=== PATIENT | male | born 1955 | race African-American/Black ===

== ENCOUNTER 2020-11-02 10:18 | Inpatient (IN) ==
[2020-11-02] MEDS ORDERED: Ondansetron 4 MG/2 ML VIAL IVP ONE (10:50)
[2020-11-02] MEDS ORDERED: 0.9 % Sodium Chloride 1,000 ML IVC ONE ×3 (10:50→15:48)
[2020-11-02] MEDS ORDERED: Isovue-370 500 ML BOTTLE IVP ONE ×2 (10:56→10:59)
[2020-11-02 11:48] LABS: Basophils % 0.8 %; Red Cell Distribution Width 16.1 % (11.5-14.5)
[2020-11-02 11:50] LABS: Eosinophils # 0.1 K/mcL (0.0-0.6); Hematocrit 34.6 % (37.5-50.1); Immature Granulocytes % 9.6 % (0-4); Immature Platelets 3.7 % (1.1-6.1); Lymphocytes # 0.2 K/mcL (0.6-4.6); Lymphocytes % 12.8 %; Mean Corpuscular HGB Conc 31.8 g/dL (31.6-35.5); Mean Corpuscular Hemoglobin 28.6 pg (28.0-33.3); Mean Corpuscular Volume 89.9 fL (83.0-100.0); Monocytes # 0.1 K/mcL (0.0-1.3); Monocytes % 10.4 %; Neutrophils # 0.8 K/mcL (1.6-8.9); Red Blood Count 3.85 M/mcL (4.19-5.50); Segmented Neutrophils % 62.4 %; White Blood Count 1.3 K/mcL (4.3-11.1)
[2020-11-02 11:52] LABS: Platelet Count 66 K/mcL (140-400)
[2020-11-02 11:56] LABS: INR 1.1; Prothrombin Time 12.3 Seconds (9.4-12.1)
[2020-11-02 12:23] LABS: Anisocytosis 1+ (Not Present); Large Platelets Present (Not Present); Platelet Estimate Decreased (Normal)
[2020-11-02 12:37] LABS: Troponin I < 0.03 ng/mL (< 0.04)
[2020-11-02 12:49] LABS: BUN/Creatinine Ratio 20 (6-26); Blood Urea Nitrogen 29 mg/dL (8-23); Calcium 8.9 mg/dL (8.6-10.3); Carbon Dioxide 22 mEq/L (23-29); Chloride 89 mEq/L (98-107); Glucose 887 mg/dL (70-105); Magnesium 2.3 mg/dL (1.6-2.6); Osmolality,Calculated 304 (280-300); Potassium 4.8 mEq/L (3.5-5.1); Sodium 122 mEq/L (136-145); eGFR For African Americans 58 (> 60); eGFR For Non-African Americans 48 (> 60)
[2020-11-02 14:36] LABS: Bilirubin,Urine Negative (Negative); Blood,Urine Negative (Negative); Clarity,Urine Clear (Clear); Color,Urine Colorless (Yellow); Glucose,Urine (UA) >=1000 mg/dL (Normal); Ketones,Urine Negative (Negative); Leukocyte Esterase,Urine Negative (Negative); Nitrite,Urine Negative (Negative); PH,Urine 6.5 pH Units (5.0-8.0); Protein,Urine Negative (Neg-Trace); RBC,Urine 0-3 per hpf (0-3); Specific Gravity,Urine > 1.030 (1.010-1.025); Urobilinogen,Urine Normal (Normal); WBC,Urine 0-3 per hpf (0-3)
[2020-11-02] MEDS ORDERED: *HR* Dextrose 50 % in Water (Vial) 50 ML VIAL IVP PRN (14:59)
[2020-11-02] MEDS ORDERED: D5% in 0.45% NACL w KCl 20 MEQ/1,000 ML MLS IVC PRN (14:59)
[2020-11-02] MEDS ORDERED: Insulin Regular, Human 100 UNIT/ML IV PRN ×2 (14:59)
[2020-11-02] MEDS ORDERED: D5% in 0.45% NACL 1,000 ML IVC PRN (14:59)
[2020-11-02] MEDS ORDERED: 0.45 % Sodium Chloride w/KCl 20 MEQ/1,000 ML MLS IVC SCH ×2 (15:00)
[2020-11-02] MEDS ORDERED: Insulin Human Regular 100 UNIT in 0.9 % Sodium Chloride 100 ML IVC SCH (15:00)
[2020-11-02] MEDS ORDERED: Naloxone 0.4 MG/ML INJ IVP PRN (15:10)
[2020-11-02] MEDS ORDERED: Ondansetron 4 MG/2 ML VIAL IVP PRN (15:10)
[2020-11-02] MEDS ORDERED: *HR* Metoprolol 5 MG/5 ML VIAL IVP ONE (15:48)
[2020-11-02 17:07] LABS: VBG HCO3 26 mEq/L (21-27); VBG PCO2 47 mmHg (41-51); VBG PH 7.36 pH Units (7.32-7.42); VBG PO2 55 mmHg (25-50)
[2020-11-02 17:25] LABS: Alanine Aminotransferase 10 Units/L (7-52); Albumin 4.2 g/dL (3.5-5.7); Albumin/Globulin Ratio 1.4 (1.1-2.2); Alkaline Phosphatase 108 Units/L (34-104); Aspartate Amino Transferase 6 Units/L (13-39); BUN/Creatinine Ratio 18 (6-26); Bilirubin,Direct 0.1 mg/dL (0.0-0.2); Bilirubin,Indirect 0.7 mg/dL (0.0-1.0); Bilirubin,Total 0.8 mg/dL (0.3-1.0); Blood Urea Nitrogen 25 mg/dL (8-23); Calcium 9.3 mg/dL (8.6-10.3); Carbon Dioxide 26 mEq/L (23-29); Chloride 94 mEq/L (98-107); Globulin 2.9 g/dL (2.4-3.5); Glucose 529 mg/dL (70-105); Lipase 35 Units/L (11-82); Osmolality,Calculated 298 (280-300); Phosphorous 3.6 mg/dL (2.7-4.5); Potassium 4.6 mEq/L (3.5-5.1); Sodium 130 mEq/L (136-145); Total Protein 7.1 g/dL (6.4-8.9); eGFR For African Americans > 60 (> 60); eGFR For Non-African Americans 52 (> 60)
[2020-11-02 21:36] LABS: BUN/Creatinine Ratio 19 (6-26); Blood Urea Nitrogen 21 mg/dL (8-23); Calcium 8.4 mg/dL (8.6-10.3); Carbon Dioxide 27 mEq/L (23-29); Chloride 106 mEq/L (98-107); Glucose 100 mg/dL (70-105); Osmolality,Calculated 291 (280-300); Potassium 3.6 mEq/L (3.5-5.1); Sodium 139 mEq/L (136-145); eGFR For African Americans > 60 (> 60); eGFR For Non-African Americans > 60 (> 60)
[2020-11-02] MEDS ORDERED: *HR* Heparin 5,000 UNIT/ML VIAL SQ SCH (22:00)
[2020-11-02] MEDS ORDERED: Insulin DETEMIR 100 UNIT/ML X5UNITS SUBQ ONE (22:24)
[2020-11-03] MEDS ORDERED: Perflutren Lipid Microsphere 1.3 ML in 0.9 % Sodium Chloride 8.7 ML IVP PRN ×2 (00:08→13:26)
[2020-11-03] MEDS ORDERED: *HR* Labetalol 20 MG/4 ML SYRINGE IVP ONE (00:11)
[2020-11-03] MEDS ORDERED: *HR* Heparin 5,000 UNIT/ML VIAL IVP ONE (00:17)
[2020-11-03] MEDS ORDERED: *HR* Heparin 5,000 UNIT/ML VIAL IVP PRN ×2 (00:17)
[2020-11-03] MEDS ORDERED: *HR* Metoprolol 5 MG/5 ML VIAL IVP ONE ×2 (00:31→09:27)
[2020-11-03 01:10] LABS: VBG Ionized Calcium 1.14 mmol/L (1.15-1.35)
[2020-11-03 01:30] LABS: BUN/Creatinine Ratio 16 (6-26); Blood Urea Nitrogen 20 mg/dL (8-23); Calcium 8.1 mg/dL (8.6-10.3); Carbon Dioxide 27 mEq/L (23-29); Chloride 105 mEq/L (98-107); Glucose 140 mg/dL (70-105); Magnesium 2.2 mg/dL (1.6-2.6); Osmolality,Calculated 291 (280-300); Potassium 3.5 mEq/L (3.5-5.1); Sodium 138 mEq/L (136-145); eGFR For African Americans > 60 (> 60); eGFR For Non-African Americans 58 (> 60)
[2020-11-03] MEDS: Heparin 25,000UNIT/250ML 1/2NS 25,000 UNIT/250 ML IV.SOLN IVC SCH ×2 (01:36→18:53)
[2020-11-03] MEDS ORDERED: Potassium Chloride Elixir 20 MEQ/15 ML UDC PO ONE (02:07)
[2020-11-03] MEDS ORDERED: Acetaminophen IV 1,000 MG/100 ML BAG IVPB ONE (03:05)
[2020-11-03 06:37] LABS: INR 1.1; Prothrombin Time 12.3 Seconds (9.4-12.1)
[2020-11-03 06:52] LABS: Alanine Aminotransferase 8 Units/L (7-52); Albumin 3.3 g/dL (3.5-5.7); Albumin/Globulin Ratio 1.6 (1.1-2.2); Alkaline Phosphatase 75 Units/L (34-104); Aspartate Amino Transferase 8 Units/L (13-39); BUN/Creatinine Ratio 16 (6-26); Bilirubin,Total 0.5 mg/dL (0.3-1.0); Blood Urea Nitrogen 20 mg/dL (8-23); Calcium 8.1 mg/dL (8.6-10.3); Carbon Dioxide 24 mEq/L (23-29); Chloride 105 mEq/L (98-107); Globulin 2.1 g/dL (2.4-3.5); Glucose 269 mg/dL (70-105); Osmolality,Calculated 290 (280-300); Potassium 4.1 mEq/L (3.5-5.1); Sodium 134 mEq/L (136-145); Total Protein 5.4 g/dL (6.4-8.9); eGFR For African Americans > 60 (> 60); eGFR For Non-African Americans 57 (> 60)
[2020-11-03] MEDS: Insulin LISPRO 300 UNITS/3 ML VIAL SUBQ SCH ×4 (08:13→21:20)
[2020-11-03 09:00] LABS: Hematocrit 33.4 % (37.5-50.1); Hemoglobin 10.9 g/dL (12.9-16.9); Mean Corpuscular HGB Conc 32.6 g/dL (31.6-35.5); Mean Corpuscular Hemoglobin 28.8 pg (28.0-33.3); Mean Corpuscular Volume 88.1 fL (83.0-100.0); Red Blood Count 3.79 M/mcL (4.19-5.50)
[2020-11-03 09:02] LABS: Immature Platelets 4.7 % (1.1-6.1); Mean Platelet Volume 11.7 fL (9.4-12.4); Monocytes # 0.1 K/mcL (0.0-1.3); Red Cell Distribution Width 16.4 % (11.5-14.5)
[2020-11-03 09:17] LABS: Estimated Average Glucose 249 mg/dl; Hemoglobin A1C 10.3 %
[2020-11-03 09:50] LABS: Platelet Count 62 K/mcL (140-400); White Blood Count 1.1 K/mcL (4.3-11.1)
[2020-11-03 12:08] LABS: Lymphocytes # 0.3 K/mcL (0.6-4.6); Neutrophils # 0.7 K/mcL (1.6-8.9); Platelet Estimate Slight Decrease (Normal)
[2020-11-03 12:09] LABS: Anisocytosis 1+ (Not Present)
[2020-11-03] MEDS ORDERED: DilTIAZem 50 MG in 0.9 % Sodium Chloride 40 ML IVC SCH (13:45)
[2020-11-03] MEDS ORDERED: Insulin DETEMIR 100 UNIT/ML X5UNITS SUBQ SCH (21:00)
[2020-11-03] MEDS: allopurinoL 100 MG TABLET PO SCH (21:18)
[2020-11-03] MEDS: *HR* HYDROcodone/Acet 10/325 mg TABLET PO PRN (21:19)
[2020-11-03] MEDS: Furosemide 40 MG TABLET PO SCH (21:19)
[2020-11-04] MEDS: *HR* HYDROcodone/Acet 10/325 mg TABLET PO PRN ×3 (05:28→21:28)
[2020-11-04 05:45] LABS: Mean Corpuscular Hemoglobin 29.3 pg (28.0-33.3)
[2020-11-04 05:47] LABS: Hematocrit 32.1 % (37.5-50.1); Hemoglobin 10.6 g/dL (12.9-16.9); Immature Platelets 6.1 % (1.1-6.1); Mean Corpuscular Volume 88.7 fL (83.0-100.0); Nucleated Red Blood Cells 2.1 /100 WBC (0); Red Blood Count 3.62 M/mcL (4.19-5.50); Red Cell Distribution Width 17.2 % (11.5-14.5); White Blood Count 1.4 K/mcL (4.3-11.1)
[2020-11-04 05:48] LABS: Platelet Count 62 K/mcL (140-400)
[2020-11-04] MEDS ORDERED: *HR* Metoprolol 5 MG/5 ML VIAL IVP ONE (05:56)
[2020-11-04 06:05] LABS: BUN/Creatinine Ratio 13 (6-26); Blood Urea Nitrogen 16 mg/dL (8-23); Calcium 8.3 mg/dL (8.6-10.3); Carbon Dioxide 25 mEq/L (23-29); Chloride 103 mEq/L (98-107); Glucose 203 mg/dL (70-105); Osmolality,Calculated 285 (280-300); Potassium 3.5 mEq/L (3.5-5.1); Sodium 134 mEq/L (136-145); eGFR For African Americans > 60 (> 60); eGFR For Non-African Americans 58 (> 60)
[2020-11-04 06:12] LABS: Lymphocytes # 0.3 K/mcL (0.6-4.6); Monocytes # 0.1 K/mcL (0.0-1.3)
[2020-11-04 06:15] LABS: Anisocytosis 1+ (Not Present); Macrocytosis Present (Not Present); Platelet Estimate Decreased (Normal); Toxic Granulation Present (Not Present)
[2020-11-04] MEDS ORDERED: DilTIAZem 50 MG/50 ML IV.SOLN IVC SCH (08:15)
[2020-11-04] MEDS: Insulin LISPRO 300 UNITS/3 ML VIAL SUBQ SCH ×4 (08:26→20:59)
[2020-11-04] MEDS: Furosemide 40 MG TABLET PO SCH ×2 (08:26→17:23)
[2020-11-04] MEDS: allopurinoL 100 MG TABLET PO SCH ×2 (08:26→21:08)
[2020-11-04] MEDS: Aspirin Enteric Coated 81 MG Tablet PO SCH (08:26)
[2020-11-04] MEDS: ENTECAVIR 0.5 MG PO SCH (08:43)
[2020-11-04] MEDS: Tenofovir Disoproxil Fumarate 300 MG TABLET PO SCH (09:30)
[2020-11-04] MEDS: amLODIPine 5 MG TABLET PO SCH (09:30)
[2020-11-04] MEDS: Apixaban 5 MG TABLET PO SCH ×2 (09:37→21:09)
[2020-11-04] MEDS ORDERED: *HR* Digoxin 0.5 MG/2 ML AMPUL IVP ONE (17:31)
[2020-11-04] MEDS: Vancomycin 1,500 MG/265 ML IV.SOLN IVPB SCH (17:54)
[2020-11-04] MEDS: Insulin DETEMIR 100 UNIT/ML X5UNITS SUBQ SCH (21:09)
[2020-11-04] MEDS ORDERED: *HR* Digoxin 0.5 MG/2 ML AMPUL IVP SCH (23:55)
[2020-11-05] MEDS: *HR* Digoxin 0.5 MG/2 ML AMPUL IVP SCH ×2 (03:50→06:47)
[2020-11-05] MEDS: *HR* HYDROcodone/Acet 10/325 mg TABLET PO PRN (03:59)
[2020-11-05 04:34] LABS: Hematocrit 32.6 % (37.5-50.1); Hemoglobin 10.7 g/dL (12.9-16.9); Lymphocytes # 0.2 K/mcL (0.6-4.6); Mean Corpuscular HGB Conc 32.8 g/dL (31.6-35.5); Mean Corpuscular Hemoglobin 29.6 pg (28.0-33.3); Mean Corpuscular Volume 90.1 fL (83.0-100.0); Mean Platelet Volume 11.8 fL (9.4-12.4); Red Blood Count 3.62 M/mcL (4.19-5.50); Red Cell Distribution Width 17.8 % (11.5-14.5)
[2020-11-05 04:37] LABS: Platelet Count 80 K/mcL (140-400)
[2020-11-05 04:45] LABS: BUN/Creatinine Ratio 15 (6-26); Blood Urea Nitrogen 21 mg/dL (8-23); Calcium 8.5 mg/dL (8.6-10.3); Carbon Dioxide 29 mEq/L (23-29); Chloride 95 mEq/L (98-107); Glucose 327 mg/dL (70-105); Osmolality,Calculated 290 (280-300); Potassium 3.7 mEq/L (3.5-5.1); Sodium 132 mEq/L (136-145); eGFR For African Americans > 60 (> 60); eGFR For Non-African Americans 50 (> 60)
[2020-11-05 04:52] LABS: Anisocytosis 1+ (Not Present); Monocytes # 0.1 K/mcL (0.0-1.3); Neutrophils # 1.6 K/mcL (1.6-8.9)
[2020-11-05 04:54] LABS: Macrocytosis Present (Not Present); Platelet Estimate Decreased (Normal); Polychromasia 1+ (Not Present)
[2020-11-05] MEDS: Vancomycin 1,500 MG/265 ML IV.SOLN IVPB SCH (06:46)
[2020-11-05] MEDS: Furosemide 40 MG TABLET PO SCH ×2 (09:06→16:42)
[2020-11-05] MEDS: amLODIPine 5 MG TABLET PO SCH (09:07)
[2020-11-05] MEDS: Apixaban 5 MG TABLET PO SCH ×2 (09:07→20:06)
[2020-11-05] MEDS: Doxycycline 100 MG CAPSULE PO SCH ×2 (09:07→20:06)
[2020-11-05] MEDS: allopurinoL 100 MG TABLET PO SCH ×2 (09:07→20:06)
[2020-11-05] MEDS: Insulin LISPRO 300 UNITS/3 ML VIAL SUBQ SCH ×4 (09:08→21:02)
[2020-11-05] MEDS: Tenofovir Disoproxil Fumarate 300 MG TABLET PO SCH (09:27)
[2020-11-05] MEDS: Aspirin Enteric Coated 81 MG Tablet PO SCH (09:29)
[2020-11-05] MEDS: ENTECAVIR 0.5 MG PO SCH (09:30)
[2020-11-05] MEDS ORDERED: *HR* Digoxin 0.125 MG TABLET PO SCH (21:00)
[2020-11-05] MEDS: Insulin DETEMIR 100 UNIT/ML X5UNITS SUBQ SCH (21:03)
[2020-11-06] MEDS ORDERED: *HR* LORazepam 2 MG/ML VIAL ONE (01:04)
[2020-11-06] MEDS: *HR* LORazepam 2 MG/ML VIAL IVP ONE ×2 (01:09→01:28)
[2020-11-06] MEDS ORDERED: *HR* Metoprolol 5 MG/5 ML VIAL IVP ONE ×2 (01:41→03:20)
[2020-11-06] MEDS ORDERED: Insulin LISPRO 300 UNITS/3 ML VIAL SUBQ ONE (06:00)
[2020-11-06 06:54] LABS: Hematocrit 34.9 % (37.5-50.1); Hemoglobin 11.2 g/dL (12.9-16.9); Mean Corpuscular HGB Conc 32.1 g/dL (31.6-35.5); Mean Corpuscular Hemoglobin 28.9 pg (28.0-33.3); Mean Corpuscular Volume 90.2 fL (83.0-100.0); Mean Platelet Volume 11.1 fL (9.4-12.4); Platelet Count 113 K/mcL (140-400); Red Blood Count 3.87 M/mcL (4.19-5.50); White Blood Count 2.8 K/mcL (4.3-11.1)
[2020-11-06 06:55] LABS: Nucleated Red Blood Cells 1.1 /100 WBC (0)
[2020-11-06 07:12] LABS: Calcium 8.7 mg/dL (8.6-10.3); Potassium 3.6 mEq/L (3.5-5.1)
[2020-11-06 07:18] LABS: Lymphocytes # 0.5 K/mcL (0.6-4.6)
[2020-11-06 07:20] LABS: Monocytes # 0.2 K/mcL (0.0-1.3); Neutrophils # 2.2 K/mcL (1.6-8.9)
[2020-11-06 07:21] LABS: Anisocytosis 1+ (Not Present); Macrocytosis Present (Not Present); Platelet Estimate Slight Decrease (Normal); Polychromasia 1+ (Not Present)
[2020-11-06] MEDS: Insulin LISPRO 300 UNITS/3 ML VIAL SUBQ SCH ×2 (07:49→12:24)
[2020-11-06] MEDS: Doxycycline 100 MG CAPSULE PO SCH (08:00)
[2020-11-06] MEDS: amLODIPine 5 MG TABLET PO SCH (08:00)
[2020-11-06] MEDS: allopurinoL 100 MG TABLET PO SCH (08:00)
[2020-11-06] MEDS: Furosemide 40 MG TABLET PO SCH (08:00)
[2020-11-06] MEDS: Tenofovir Disoproxil Fumarate 300 MG TABLET PO SCH (08:01)
[2020-11-06] MEDS: ENTECAVIR 0.5 MG PO SCH (08:01)
[2020-11-06] MEDS ORDERED: 0.9 % Sodium Chloride 500 ML IVC ONE ×2 (08:15→10:55)
[2020-11-06] MEDS: *HR* HYDROcodone/Acet 10/325 mg TABLET PO PRN (08:18)
[2020-11-06] MEDS: Aspirin Enteric Coated 81 MG Tablet PO SCH (08:30)
[2020-11-06 10:52] VITALS: BP 106/75
[2020-11-06] MEDS ORDERED: *HR* FentaNYL (PF) 100 MCG/2 ML VIAL IVP PRN (10:55)
[2020-11-06] MEDS ORDERED: Lidocaine Viscous Oral Soln 15 ML SOLUTION MM PRN (10:55)
[2020-11-06] MEDS ORDERED: *HR* Midazolam HCl 5 MG/5 ML VIAL IVP PRN (10:55)
[2020-11-06] MEDS: Apixaban 5 MG TABLET PO SCH (12:24)
[2020-11-06] MEDS ORDERED: Insulin DETEMIR 100 UNIT/ML X5UNITS SUBQ SCH (21:00)
[2020-11-07] MEDS ORDERED: amLODIPine 5 MG TABLET PO SCH (09:00)
== END 2020-11-06 16:07 | disposition home or self-care (01) ==
LOC: 2NNU 10:18 → EMEROOARM 10:18 → SUATTDRO 15:16 → 2NNU 18:27 → 3ANU 11-05 19:18
PROVIDERS: ADMIT Family Medicine; ATTEND Family Medicine

== ENCOUNTER 2021-01-16 02:36 | Observation (INO) ==
[2021-01-16 03:27] LABS: Hematocrit 33.4 % (37.5-50.1); Hemoglobin 10.7 g/dL (12.9-16.9); Mean Corpuscular Hemoglobin 29.6 pg (28.0-33.3); Mean Corpuscular Volume 92.5 fL (83.0-100.0); Mean Platelet Volume 10.7 fL (9.4-12.4); Platelet Count 185 K/mcL (140-400); Red Blood Count 3.61 M/mcL (4.19-5.50); Red Cell Distribution Width 16.9 % (11.5-14.5); White Blood Count 2.8 K/mcL (4.3-11.1)
[2021-01-16 03:40] LABS: INR 1.2; Prothrombin Time 13.6 Seconds (9.4-12.1)
[2021-01-16 03:52] LABS: BUN/Creatinine Ratio 15 (6-26); Blood Urea Nitrogen 21 mg/dL (8-23); Calcium 9.5 mg/dL (8.6-10.3); Carbon Dioxide 25 mEq/L (23-29); Chloride 104 mEq/L (98-107); Glucose 150 mg/dL (70-105); Osmolality,Calculated 294 (280-300); Potassium 3.7 mEq/L (3.5-5.1); Sodium 139 mEq/L (136-145); eGFR For African Americans > 60 (> 60); eGFR For Non-African Americans 51 (> 60)
[2021-01-16 03:56] LABS: Anisocytosis 1+ (Not Present); Basophils # 0.1 K/mcL (0.0-0.2); Eosinophils # 0.1 K/mcL (0.0-0.6); Large Platelets Present (Not Present); Lymphocytes # 0.6 K/mcL (0.6-4.6); Monocytes # 0.4 K/mcL (0.0-1.3); Neutrophils # 1.6 K/mcL (1.6-8.9); Platelet Estimate Normal (Normal); Reactive Lymphocytes Present (Not Present)
[2021-01-16 03:57] LABS: Troponin I 0.41 ng/mL (< 0.04)
[2021-01-16] MEDS ORDERED: *HR* FentaNYL (PF) 100 MCG/2 ML VIAL IVP ONE (03:57)
[2021-01-16] MEDS ORDERED: Nitroglycerin 0.4 MG TAB.SUBL SL ONE (03:57)
[2021-01-16] MEDS ORDERED: Isovue-370 500 ML BOTTLE IVP ONE (04:20)
[2021-01-16] MEDS ORDERED: Naloxone 0.4 MG/ML INJ IVP PRN (05:52)
[2021-01-16] MEDS ORDERED: Heparin 25,000UNIT/250ML 1/2NS 25,000 UNIT/250 ML IV.SOLN IVC SCH (06:30)
[2021-01-16] MEDS ORDERED: *HR* Heparin 5,000 UNIT/ML VIAL IVP PRN ×2 (06:30)
[2021-01-16] MEDS ORDERED: *HR* Heparin 5,000 UNIT/ML VIAL IVP ONE (06:32)
[2021-01-16] MEDS ORDERED: *HR* Metoprolol 5 MG/5 ML VIAL IVP PRN (06:34)
[2021-01-16] MEDS ORDERED: Nitroglycerin 0.4 MG TAB.SUBL SL PRN (06:53)
[2021-01-16] MEDS ORDERED: Perflutren Lipid Microsphere 1.3 ML in 0.9 % Sodium Chloride 8.7 ML IVP PRN (07:04)
[2021-01-16] MEDS ORDERED: Ondansetron ODT 4 MG TAB.RAPDIS SL PRN (10:36)
[2021-01-16] MEDS ORDERED: *HR* HYDROcodone/Acet 5/325 mg TABLET PO PRN (13:12)
[2021-01-16] MEDS: Apixaban 5 MG TABLET PO SCH ×2 (15:14→21:14)
[2021-01-17 04:01] LABS: Hematocrit 30.6 % (37.5-50.1); Hemoglobin 9.9 g/dL (12.9-16.9); Mean Corpuscular HGB Conc 32.4 g/dL (31.6-35.5); Mean Corpuscular Hemoglobin 29.8 pg (28.0-33.3); Mean Corpuscular Volume 92.2 fL (83.0-100.0); Mean Platelet Volume 10.2 fL (9.4-12.4); Platelet Count 143 K/mcL (140-400); Red Blood Count 3.32 M/mcL (4.19-5.50); Red Cell Distribution Width 16.9 % (11.5-14.5); White Blood Count 2.4 K/mcL (4.3-11.1)
[2021-01-17 04:25] LABS: BUN/Creatinine Ratio 11 (6-26); Blood Urea Nitrogen 14 mg/dL (8-23); Calcium 9.2 mg/dL (8.6-10.3); Carbon Dioxide 28 mEq/L (23-29); Chloride 102 mEq/L (98-107); Glucose 128 mg/dL (70-105); Osmolality,Calculated 284 (280-300); Potassium 4.1 mEq/L (3.5-5.1); Sodium 136 mEq/L (136-145); eGFR For African Americans > 60 (> 60); eGFR For Non-African Americans 59 (> 60)
[2021-01-17] MEDS: Apixaban 5 MG TABLET PO SCH (10:15)
[2021-01-17] MEDS ORDERED: Regadenoson 0.4 MG/5 ML SYRINGE IVP ONE (10:15)
[2021-01-17 15:27] VITALS: BP 108/74
[2021-01-17] MEDS ORDERED: Metoprolol XL (24 HR) Succ 25 MG TAB.ER.24H PO SCH (21:00)
[2021-01-18] MEDS ORDERED: lisinopriL 5 MG TABLET PO SCH (09:00)
== END 2021-01-17 18:27 | disposition home or self-care (01) ==
LOC: EMEROOARM 02:36 → 2NNU 02:36 → 3BNU 20:45
PROVIDERS: ADMIT Student in an Organized Health Care Education/Training Program; ATTEND Student in an Organized Health Care Education/Training Program

== ENCOUNTER 2021-02-02 06:31 | Inpatient (IN) ==
[2021-02-02] MEDS ORDERED: *HR* FentaNYL (PF) 100 MCG/2 ML VIAL ONE ×2 (06:59→09:09)
[2021-02-02] MEDS ORDERED: Clindamycin 900 MG/50 ML 900 MG/50 ML IV.SOLN IVPB ONE (06:59)
[2021-02-02] MEDS ORDERED: Ondansetron 4 MG/2 ML VIAL ONE (06:59)
[2021-02-02] MEDS ORDERED: *HR* Rocuronium Bromide 50 MG/5 ML VIAL ONE (06:59)
[2021-02-02] MEDS ORDERED: *HR* Succinylcholine 200 MG/10 ML VIAL IVP ONE ×2 (06:59→07:00)
[2021-02-02] MEDS ORDERED: *HR* Propofol 200 MG/20 ML VIAL IVP ONE (06:59)
[2021-02-02] MEDS ORDERED: *HR* Midazolam HCl 2 MG/2 ML VIAL ONE (06:59)
[2021-02-02] MEDS ORDERED: Lidocaine -MPF 4% 5 ML AMPUL ONE (06:59)
[2021-02-02] MEDS ORDERED: Lidocaine -MPF 2% 2 ML VIAL ONE ×2 (06:59→07:07)
[2021-02-02] MEDS ORDERED: Dexamethasone 4 MG/ML VIAL ONE (06:59)
[2021-02-02] MEDS ORDERED: Ringers Solution, Lactated 1,000 ML IVC SCH (07:00)
[2021-02-02] MEDS ORDERED: Ketorolac 30 MG/ML VIAL IVP PRN (07:13)
[2021-02-02] MEDS ORDERED: *HR* OxyCODONE Immed Rel 5 MG TABLET PO PRN (07:13)
[2021-02-02] MEDS ORDERED: Ondansetron 4 MG/2 ML VIAL IVP PRN ×2 (07:13→13:12)
[2021-02-02] MEDS ORDERED: Famotidine 20 MG/2 ML VIAL IVP ONE (07:13)
[2021-02-02] MEDS ORDERED: Albuterol 2.5 MG/3 ML NEBULIZER IH PRN (07:13)
[2021-02-02] MEDS ORDERED: *HR* Metoprolol 5 MG/5 ML VIAL IVP PRN (07:13)
[2021-02-02] MEDS ORDERED: Acetaminophen IV 1,000 MG/100 ML BAG IVPB ONE (07:13)
[2021-02-02] MEDS ORDERED: Lidocaine Jelly 6ml 1 APPL/6 ML JEL.PF.APP ONE ×2 (07:17→07:54)
[2021-02-02] MEDS ORDERED: *HR* Vasopressin 20 UNIT/ML VIAL ONE (07:18)
[2021-02-02] MEDS ORDERED: Hydrocortisone Sodium Succ 100 MG/2 ML VIAL ONE (07:58)
[2021-02-02] MEDS ORDERED: *HR* HYDROMORPHONE 2 MG/ML VIAL ONE (08:44)
[2021-02-02] MEDS ORDERED: Sugammadex Sodium 200 MG/2 ML VIAL IV ONE (10:52)
[2021-02-02] MEDS: *HR* HYDROmorphone (PF) 1 MG/ML SYRINGE IVP PRN ×2 (10:54→11:00)
[2021-02-02] MEDS ORDERED: *HR* Labetalol 20 MG/4 ML SYRINGE IVP PRN (11:06)
[2021-02-02] MEDS ORDERED: D5% in Water 1,000 ML IVC PRN (13:12)
[2021-02-02] MEDS ORDERED: Dextrose Gel 15 GM/37.5 ML TUBE PO PRN ×2 (13:12)
[2021-02-02] MEDS ORDERED: Naloxone 0.4 MG/ML INJ IVP PRN (13:12)
[2021-02-02] MEDS ORDERED: *HR* Dextrose 50 % in Water (Vial) 50 ML VIAL IVP PRN (13:12)
[2021-02-02] MEDS: 0.9 % Sodium Chloride 1,000 ML IVC SCH (14:00)
[2021-02-02] MEDS: *HR* OxyCODONE/APAP 10/325 TABLET PO PRN ×2 (14:42→18:44)
[2021-02-02] MEDS: *HR* Heparin 5,000 UNIT/ML VIAL SQ SCH ×2 (14:42→22:05)
[2021-02-02] MEDS: Gabapentin 300 MG CAPSULE PO SCH ×2 (14:42→22:04)
[2021-02-02] MEDS: Ipratropium/Albuterol Neb 3 ML IH SCH ×3 (15:50→20:17)
[2021-02-02] MEDS: Insulin LISPRO 300 UNITS/3 ML VIAL SUBQ SCH ×3 (16:31→22:06)
[2021-02-02] MEDS: Famotidine 20 MG TABLET PO SCH (22:05)
[2021-02-02] MEDS: Sennosides/Docusate Sodium TABLET PO SCH (22:05)
[2021-02-03] MEDS: Ipratropium/Albuterol Neb 3 ML IH SCH ×6 (00:14→22:32)
[2021-02-03] MEDS: *HR* OxyCODONE/APAP 10/325 TABLET PO PRN ×6 (00:40→23:58)
[2021-02-03 01:27] LABS: Hematocrit 31.2 % (37.5-50.1); Hemoglobin 9.9 g/dL (12.9-16.9); Mean Corpuscular HGB Conc 31.7 g/dL (31.6-35.5); Mean Corpuscular Hemoglobin 29.3 pg (28.0-33.3); Mean Corpuscular Volume 92.3 fL (83.0-100.0); Platelet Count 135 K/mcL (140-400); Red Blood Count 3.38 M/mcL (4.19-5.50); White Blood Count 2.7 K/mcL (4.3-11.1)
[2021-02-03 01:45] LABS: % Iron Saturation 9 % (20-55); BUN/Creatinine Ratio 14 (6-26); Blood Urea Nitrogen 18 mg/dL (8-23); Calcium 8.8 mg/dL (8.6-10.3); Carbon Dioxide 24 mEq/L (23-29); Chloride 106 mEq/L (98-107); Glucose 141 mg/dL (70-105); Iron 25 mcg/dL (65-175); Magnesium 1.4 mg/dL (1.6-2.6); Osmolality,Calculated 288 (280-300); Sodium 137 mEq/L (136-145); Transferrin 188 mg/dL (203-362); eGFR For African Americans > 60 (> 60); eGFR For Non-African Americans 54 (> 60)
[2021-02-03] MEDS: 0.9 % Sodium Chloride 1,000 ML IVC SCH (05:07)
[2021-02-03] MEDS ORDERED: Amiodarone Premix 150 MG/100 ML BAG IVPB ONE ×2 (05:15→05:17)
[2021-02-03] MEDS ORDERED: Amiodarone Premix 360 MG/200 ML BAG IVC ONE ×2 (05:17→05:45)
[2021-02-03] MEDS: *HR* Heparin 5,000 UNIT/ML VIAL SQ SCH ×3 (05:24→21:34)
[2021-02-03] MEDS: Gabapentin 300 MG CAPSULE PO SCH ×3 (08:18→19:48)
[2021-02-03] MEDS: Famotidine 20 MG TABLET PO SCH ×2 (08:18→19:49)
[2021-02-03] MEDS: Insulin LISPRO 300 UNITS/3 ML VIAL SUBQ SCH ×4 (08:19→20:01)
[2021-02-03] MEDS: Sennosides/Docusate Sodium TABLET PO SCH ×2 (08:19→19:48)
[2021-02-03] MEDS: *HR* Amiodarone 200 MG TABLET PO SCH (10:31)
[2021-02-03] MEDS: *HR* HYDROmorphone (PF) 1 MG/ML SYRINGE IVP PRN (10:40)
[2021-02-03] MEDS ORDERED: Amiodarone Premix 360 MG/200 ML BAG IVC SCH (11:30)
[2021-02-03] MEDS ORDERED: Ipratropium/Albuterol Neb 3 ML IH PRN (20:02)
[2021-02-04] MEDS: *HR* HYDROmorphone (PF) 1 MG/ML SYRINGE IVP PRN (04:41)
[2021-02-04] MEDS: *HR* Heparin 5,000 UNIT/ML VIAL SQ SCH ×3 (04:42→21:14)
[2021-02-04] MEDS: Insulin LISPRO 300 UNITS/3 ML VIAL SUBQ SCH ×4 (08:25→20:59)
[2021-02-04] MEDS: Sennosides/Docusate Sodium TABLET PO SCH ×2 (08:27→21:14)
[2021-02-04] MEDS: *HR* Amiodarone 200 MG TABLET PO SCH (08:27)
[2021-02-04] MEDS: Famotidine 20 MG TABLET PO SCH ×2 (08:27→21:14)
[2021-02-04] MEDS: Gabapentin 300 MG CAPSULE PO SCH ×3 (08:28→21:13)
[2021-02-04] MEDS: *HR* OxyCODONE/APAP 10/325 TABLET PO PRN ×3 (09:38→21:13)
[2021-02-05 01:07] LABS: Hematocrit 28.1 % (37.5-50.1); Hemoglobin 8.9 g/dL (12.9-16.9); Mean Corpuscular HGB Conc 31.7 g/dL (31.6-35.5); Mean Corpuscular Hemoglobin 29.3 pg (28.0-33.3); Mean Corpuscular Volume 92.4 fL (83.0-100.0); Mean Platelet Volume 9.6 fL (9.4-12.4); Platelet Count 115 K/mcL (140-400); Red Blood Count 3.04 M/mcL (4.19-5.50); Red Cell Distribution Width 16.1 % (11.5-14.5); White Blood Count 2.4 K/mcL (4.3-11.1)
[2021-02-05] MEDS: *HR* OxyCODONE/APAP 10/325 TABLET PO PRN ×4 (01:19→20:01)
[2021-02-05 01:32] LABS: BUN/Creatinine Ratio 17 (6-26); Blood Urea Nitrogen 23 mg/dL (8-23); Calcium 8.3 mg/dL (8.6-10.3); Carbon Dioxide 21 mEq/L (23-29); Chloride 104 mEq/L (98-107); Glucose 125 mg/dL (70-105); Osmolality,Calculated 283 (280-300); Phosphorous 2.4 mg/dL (2.7-4.5); Potassium 4.2 mEq/L (3.5-5.1); Sodium 134 mEq/L (136-145); eGFR For African Americans > 60 (> 60); eGFR For Non-African Americans 54 (> 60)
[2021-02-05] MEDS: *HR* Heparin 5,000 UNIT/ML VIAL SQ SCH ×3 (07:05→22:00)
[2021-02-05] MEDS: Insulin LISPRO 300 UNITS/3 ML VIAL SUBQ SCH ×4 (07:58→20:02)
[2021-02-05] MEDS: *HR* Amiodarone 200 MG TABLET PO SCH (08:00)
[2021-02-05] MEDS: Gabapentin 300 MG CAPSULE PO SCH ×3 (08:00→20:02)
[2021-02-05] MEDS: Sennosides/Docusate Sodium TABLET PO SCH ×2 (08:00→20:02)
[2021-02-05] MEDS: Famotidine 20 MG TABLET PO SCH ×2 (08:00→20:02)
[2021-02-05] MEDS: *HR* HYDROmorphone (PF) 1 MG/ML SYRINGE IVP PRN ×3 (08:10→22:01)
[2021-02-06] MEDS: *HR* HYDROmorphone (PF) 1 MG/ML SYRINGE IVP PRN ×3 (02:12→11:40)
[2021-02-06] MEDS: *HR* Heparin 5,000 UNIT/ML VIAL SQ SCH ×2 (04:28→14:13)
[2021-02-06] MEDS: *HR* OxyCODONE/APAP 10/325 TABLET PO PRN ×3 (04:29→14:12)
[2021-02-06] MEDS: Insulin LISPRO 300 UNITS/3 ML VIAL SUBQ SCH ×2 (08:03→11:36)
[2021-02-06] MEDS: Gabapentin 300 MG CAPSULE PO SCH ×2 (08:06→14:13)
[2021-02-06] MEDS: Famotidine 20 MG TABLET PO SCH (08:06)
[2021-02-06] MEDS: *HR* Amiodarone 200 MG TABLET PO SCH (08:06)
[2021-02-06] MEDS: Sennosides/Docusate Sodium TABLET PO SCH (08:06)
[2021-02-06 14:18] VITALS: BP 107/90
== END 2021-02-06 15:45 | disposition home or self-care (01) | DRG 163 ==
LOC: SAMDAY 06:31 → 2NNU 12:59
PROVIDERS: ADMIT Thoracic Surgery (Cardiothoracic Vascular Surgery); ATTEND Thoracic Surgery (Cardiothoracic Vascular Surgery)

== ENCOUNTER 2021-02-20 12:32 | Inpatient (IN) ==
[2021-02-20] MEDS ORDERED: Ipratropium/Albuterol Neb 3 ML IH ONE (13:02)
[2021-02-20] MEDS ORDERED: DilTIAZem 50 MG/50 ML IV.SOLN IVC SCH (13:15)
[2021-02-20] MEDS ORDERED: 0.9 % Sodium Chloride 1,000 ML IVC ONE (13:32)
[2021-02-20] MEDS ORDERED: *HR* HYDROcodone/Acet 5/325 mg TABLET PO ONE (13:43)
[2021-02-20] MEDS ORDERED: Ondansetron 4 MG/2 ML VIAL IVP PRN (15:22)
[2021-02-20] MEDS ORDERED: Melatonin 3 MG TABLET PO PRN (15:22)
[2021-02-20] MEDS ORDERED: Acetaminophen 325 MG TABLET PO PRN (15:22)
[2021-02-20] MEDS ORDERED: *HR* HYDROcodone/Acet 5/325 mg TABLET PO PRN (15:22)
[2021-02-20] MEDS ORDERED: Naloxone 0.4 MG/ML INJ IVP PRN (15:22)
[2021-02-20] MEDS ORDERED: Amiodarone Premix 150 MG/100 ML BAG IVPB ONE (15:26)
[2021-02-20] MEDS ORDERED: Amiodarone Premix 360 MG/200 ML BAG IVC ONE (15:28)
[2021-02-20] MEDS ORDERED: *HR* Heparin 5,000 UNIT/ML VIAL IVP PRN ×2 (15:43)
[2021-02-20] MEDS ORDERED: Heparin 25,000UNIT/250ML 1/2NS 25,000 UNIT/250 ML IV.SOLN IVC SCH (15:45)
[2021-02-20] MEDS: Heparin 25,000UNIT/250ML 1/2NS 25,000 UNIT/250 ML IV.SOLN IVC SCH (16:55)
[2021-02-20 17:42] LABS: INR 1.3; Prothrombin Time 15.1 Seconds (9.4-12.1)
[2021-02-20 17:43] LABS: Heparin anti-factor XA UFH 0.31 IU/mL (0.30-0.70)
[2021-02-20 17:45] LABS: Activated Partial Thrombo Time 30.1 Seconds (26.0-36.0)
[2021-02-20] MEDS: *HR* HYDROcodone/Acet 5/325 mg TABLET PO PRN (18:21)
[2021-02-20] MEDS ORDERED: *HR* Dextrose 50 % in Water (Vial) 50 ML VIAL IVP PRN (18:26)
[2021-02-20] MEDS ORDERED: Dextrose Gel 15 GM/37.5 ML TUBE PO PRN ×2 (18:26)
[2021-02-20] MEDS ORDERED: D5% in Water 1,000 ML IVC PRN (18:26)
[2021-02-20] MEDS ORDERED: Ipratropium/Albuterol Neb 3 ML IH PRN (18:32)
[2021-02-20 19:22] LABS: Estimated Average Glucose 100 mg/dl; Hemoglobin A1C 5.1 %
[2021-02-20] MEDS: Insulin LISPRO 300 UNITS/3 ML VIAL SUBQ SCH (20:39)
[2021-02-20] MEDS: Amiodarone Premix 360 MG/200 ML BAG IVC SCH (21:36)
[2021-02-21] MEDS: *HR* HYDROcodone/Acet 5/325 mg TABLET PO PRN (02:35)
[2021-02-21 02:50] LABS: Bilirubin,Urine Negative (Negative); Blood,Urine Negative (Negative); Clarity,Urine Clear (Clear); Color,Urine Yellow (Yellow); Glucose,Urine (UA) Normal (Normal); Ketones,Urine Negative (Negative); Leukocyte Esterase,Urine Negative (Negative); Nitrite,Urine Negative (Negative); PH,Urine 5.5 pH Units (5.0-8.0); Protein,Urine Trace mg/dL (Neg-Trace); Specific Gravity,Urine 1.025 (1.010-1.025); Urobilinogen,Urine Normal (Normal)
[2021-02-21 06:42] LABS: Hematocrit 28.4 % (37.5-50.1); Hemoglobin 8.8 g/dL (12.9-16.9); Lymphocytes # 0.3 K/mcL (0.6-4.6); Mean Corpuscular Hemoglobin 27.4 pg (28.0-33.3); Mean Corpuscular Volume 88.5 fL (83.0-100.0); Platelet Count 153 K/mcL (140-400); Red Blood Count 3.21 M/mcL (4.19-5.50); Red Cell Distribution Width 15.2 % (11.5-14.5)
[2021-02-21 07:10] LABS: Albumin 3.3 g/dL (3.5-5.7); Albumin/Globulin Ratio 1.3 (1.1-2.2); Bilirubin,Total 0.5 mg/dL (0.3-1.0); Calcium 8.8 mg/dL (8.6-10.3); Globulin 2.5 g/dL (2.4-3.5); Potassium 3.9 mEq/L (3.5-5.1); Total Protein 5.8 g/dL (6.4-8.9)
[2021-02-21] MEDS ORDERED: Furosemide 40 MG TABLET PO SCH (08:00)
[2021-02-21 08:18] LABS: Eosinophils # 0.2 K/mcL (0.0-0.6); Monocytes # 0.1 K/mcL (0.0-1.3); Neutrophils # 0.4 K/mcL (1.6-8.9)
[2021-02-21 08:19] LABS: Anisocytosis 1+ (Not Present); Large Platelets Present (Not Present); Ovalocytes 1+ (Not Present); Platelet Estimate Normal (Normal)
[2021-02-21] MEDS ORDERED: *HR* OxyCODONE/APAP 7.5/325 TABLET PO PRN (08:45)
[2021-02-21] MEDS: Aspirin 81 MG TAB.CHEW PO SCH (09:33)
[2021-02-21] MEDS: Insulin LISPRO 300 UNITS/3 ML VIAL SUBQ SCH ×4 (09:40→20:09)
[2021-02-21] MEDS: Amiodarone Premix 360 MG/200 ML BAG IVC SCH (10:19)
[2021-02-21] MEDS: Heparin 25,000UNIT/250ML 1/2NS 25,000 UNIT/250 ML IV.SOLN IVC SCH (11:40)
[2021-02-21] MEDS ORDERED: Perflutren Lipid Microsphere 1.3 ML in 0.9 % Sodium Chloride 8.7 ML IVP PRN (13:48)
[2021-02-21] MEDS ORDERED: 0.9 % Sodium Chloride 500 ML ONE (14:35)
[2021-02-21] MEDS: Metoprolol XL (24 HR) Succ 25 MG TAB.ER.24H PO SCH (15:34)
[2021-02-21] MEDS: *HR* HYDROmorphone (PF) 1 MG/ML SYRINGE IVP PRN ×2 (16:17→20:17)
[2021-02-21] MEDS ORDERED: Apixaban 5 MG TABLET PO SCH (21:00)
[2021-02-22] MEDS: *HR* HYDROmorphone (PF) 1 MG/ML SYRINGE IVP PRN ×4 (03:05→22:06)
[2021-02-22 04:32] LABS: Mean Platelet Volume 10.5 fL (9.4-12.4)
[2021-02-22 04:34] LABS: Basophils % 1.8 %; Eosinophils # 0.1 K/mcL (0.0-0.6); Hematocrit 27.7 % (37.5-50.1); Hemoglobin 8.5 g/dL (12.9-16.9); Immature Granulocytes % 11.4 % (0-4); Lymphocytes # 0.2 K/mcL (0.6-4.6); Lymphocytes % 20.2 %; Mean Corpuscular HGB Conc 30.7 g/dL (31.6-35.5); Mean Corpuscular Hemoglobin 27.6 pg (28.0-33.3); Mean Corpuscular Volume 89.9 fL (83.0-100.0); Monocytes # 0.3 K/mcL (0.0-1.3); Monocytes % 27.2 %; Neutrophils # 0.4 K/mcL (1.6-8.9); Platelet Count 145 K/mcL (140-400); Red Blood Count 3.08 M/mcL (4.19-5.50); Red Cell Distribution Width 15.5 % (11.5-14.5); Segmented Neutrophils % 32.4 %; White Blood Count 1.1 K/mcL (4.3-11.1)
[2021-02-22 04:50] LABS: BUN/Creatinine Ratio 17 (6-26); Blood Urea Nitrogen 20 mg/dL (8-23); Calcium 8.6 mg/dL (8.6-10.3); Carbon Dioxide 27 mEq/L (23-29); Chloride 103 mEq/L (98-107); Glucose 120 mg/dL (70-105); Magnesium 1.8 mg/dL (1.6-2.6); Osmolality,Calculated 290 (280-300); Potassium 3.7 mEq/L (3.5-5.1); Sodium 138 mEq/L (136-145); eGFR For African Americans > 60 (> 60); eGFR For Non-African Americans 60 (> 60)
[2021-02-22 05:01] LABS: Platelet Estimate Normal (Normal)
[2021-02-22] MEDS: Insulin LISPRO 300 UNITS/3 ML VIAL SUBQ SCH ×3 (08:11→16:55)
[2021-02-22] MEDS: Aspirin 81 MG TAB.CHEW PO SCH (08:19)
[2021-02-22] MEDS: Metoprolol XL (24 HR) Succ 25 MG TAB.ER.24H PO SCH (08:20)
[2021-02-22] MEDS: polyethylene glycoL 3350 17 GM POWD.PACK PO SCH (08:23)
[2021-02-22] MEDS ORDERED: amLODIPine 5 MG TABLET PO SCH (09:00)
[2021-02-22] MEDS ORDERED: Aspirin Enteric Coated 81 MG Tablet PO SCH (09:00)
[2021-02-22 10:53] LABS: Thyroid Stimulating Hormone 1.143 mcIU/mL (0.340-5.600)
[2021-02-22] MEDS ORDERED: Sennosides/Docusate Sodium TABLET PO ONE (11:36)
[2021-02-22] MEDS: *HR* Amiodarone 200 MG TABLET PO SCH (20:20)
[2021-02-23] MEDS: *HR* HYDROmorphone (PF) 1 MG/ML SYRINGE IVP PRN ×4 (02:36→19:41)
[2021-02-23 03:48] LABS: Hemoglobin 8.3 g/dL (12.9-16.9)
[2021-02-23 03:50] LABS: Basophils % 1.2 %; Eosinophils # 0.1 K/mcL (0.0-0.6); Eosinophils % 8.5 %; Hematocrit 27.1 % (37.5-50.1); Immature Granulocytes % 7.3 % (0-4); Lymphocytes # 0.2 K/mcL (0.6-4.6); Lymphocytes % 24.4 %; Mean Corpuscular HGB Conc 30.6 g/dL (31.6-35.5); Mean Corpuscular Volume 88.3 fL (83.0-100.0); Mean Platelet Volume 9.9 fL (9.4-12.4); Monocytes # 0.2 K/mcL (0.0-1.3); Monocytes % 29.3 %; Neutrophils # 0.2 K/mcL (1.6-8.9); Platelet Count 142 K/mcL (140-400); Red Blood Count 3.07 M/mcL (4.19-5.50); Red Cell Distribution Width 15.4 % (11.5-14.5); Segmented Neutrophils % 29.3 %
[2021-02-23] MEDS: Insulin LISPRO 300 UNITS/3 ML VIAL SUBQ SCH ×5 (03:58→22:13)
[2021-02-23 04:07] LABS: BUN/Creatinine Ratio 15 (6-26); Blood Urea Nitrogen 16 mg/dL (8-23); Calcium 8.9 mg/dL (8.6-10.3); Carbon Dioxide 25 mEq/L (23-29); Chloride 104 mEq/L (98-107); Glucose 104 mg/dL (70-105); Magnesium 1.9 mg/dL (1.6-2.6); Osmolality,Calculated 285 (280-300); Sodium 137 mEq/L (136-145); eGFR For African Americans > 60 (> 60); eGFR For Non-African Americans > 60 (> 60)
[2021-02-23 04:25] LABS: White Blood Count 0.8 K/mcL (4.3-11.1)
[2021-02-23 05:18] LABS: Platelet Estimate Normal (Normal); Reactive Lymphocytes Present (Not Present)
[2021-02-23] MEDS: polyethylene glycoL 3350 17 GM POWD.PACK PO SCH (07:55)
[2021-02-23] MEDS: lisinopriL 5 MG TABLET PO SCH (08:04)
[2021-02-23] MEDS: *HR* Amiodarone 200 MG TABLET PO SCH ×3 (08:04→21:48)
[2021-02-23] MEDS: Metoprolol XL (24 HR) Succ 25 MG TAB.ER.24H PO SCH (08:04)
[2021-02-23] MEDS: Aspirin 81 MG TAB.CHEW PO SCH (08:04)
[2021-02-23] MEDS ORDERED: *HR* Alteplase (Cathflo) 2 MG VIAL IVP ONE (10:06)
[2021-02-23] MEDS: Spironolactone 25 MG TABLET PO SCH (11:41)
[2021-02-23] MEDS ORDERED: Ringers Solution, Lactated 1,000 ML IVC ONE (16:15)
[2021-02-23 17:04] LABS: Hematocrit 27.1 % (37.5-50.1); Hemoglobin 8.3 g/dL (12.9-16.9)
[2021-02-24] MEDS: lisinopriL 5 MG TABLET PO SCH (09:14)
[2021-02-24] MEDS: Aspirin 81 MG TAB.CHEW PO SCH (09:14)
[2021-02-24] MEDS: Metoprolol XL (24 HR) Succ 25 MG TAB.ER.24H PO SCH (09:14)
[2021-02-24] MEDS: polyethylene glycoL 3350 17 GM POWD.PACK PO SCH (09:14)
[2021-02-24] MEDS: *HR* Amiodarone 200 MG TABLET PO SCH ×2 (09:14→20:45)
[2021-02-24] MEDS: Spironolactone 25 MG TABLET PO SCH (09:14)
[2021-02-24] MEDS: Insulin LISPRO 300 UNITS/3 ML VIAL SUBQ SCH ×4 (09:15→21:31)
[2021-02-24] MEDS: *HR* OxyCODONE/APAP 10/325 TABLET PO PRN ×2 (12:52→20:45)
[2021-02-24 13:31] LABS: Mean Corpuscular HGB Conc 30.5 g/dL (31.6-35.5); Red Cell Distribution Width 15.2 % (11.5-14.5)
[2021-02-24 13:33] LABS: Eosinophils # 0.1 K/mcL (0.0-0.6); Hematocrit 30.5 % (37.5-50.1); Hemoglobin 9.3 g/dL (12.9-16.9); Mean Corpuscular Hemoglobin 27.4 pg (28.0-33.3); Mean Corpuscular Volume 89.7 fL (83.0-100.0); Mean Platelet Volume 9.5 fL (9.4-12.4); Platelet Count 164 K/mcL (140-400); White Blood Count 1.2 K/mcL (4.3-11.1)
[2021-02-24 13:46] LABS: BUN/Creatinine Ratio 13 (6-26); Blood Urea Nitrogen 16 mg/dL (8-23); Calcium 9.3 mg/dL (8.6-10.3); Carbon Dioxide 26 mEq/L (23-29); Chloride 103 mEq/L (98-107); Glucose 146 mg/dL (70-105); Magnesium 2.1 mg/dL (1.6-2.6); Osmolality,Calculated 288 (280-300); Potassium 4.3 mEq/L (3.5-5.1); Sodium 137 mEq/L (136-145); eGFR For African Americans > 60 (> 60); eGFR For Non-African Americans 56 (> 60)
[2021-02-24 15:23] LABS: Lymphocytes # 0.4 K/mcL (0.6-4.6); Monocytes # 0.1 K/mcL (0.0-1.3); Neutrophils # 0.6 K/mcL (1.6-8.9); Platelet Estimate Normal (Normal)
[2021-02-24] MEDS ORDERED: Mirtazapine 15 MG TABLET PO SCH (21:00)
[2021-02-25] MEDS: Insulin LISPRO 300 UNITS/3 ML VIAL SUBQ SCH ×4 (08:39→20:23)
[2021-02-25] MEDS: lisinopriL 5 MG TABLET PO SCH (08:49)
[2021-02-25] MEDS: *HR* Amiodarone 200 MG TABLET PO SCH ×2 (08:49→20:22)
[2021-02-25] MEDS: Spironolactone 25 MG TABLET PO SCH (08:49)
[2021-02-25] MEDS: polyethylene glycoL 3350 17 GM POWD.PACK PO SCH (08:49)
[2021-02-25] MEDS: Aspirin 81 MG TAB.CHEW PO SCH (08:49)
[2021-02-25] MEDS: Metoprolol XL (24 HR) Succ 25 MG TAB.ER.24H PO SCH (08:49)
[2021-02-25] MEDS: *HR* OxyCODONE/APAP 10/325 TABLET PO PRN ×2 (08:59→16:54)
[2021-02-25 14:44] LABS: Mean Platelet Volume 10.3 fL (9.4-12.4); White Blood Count 1.4 K/mcL (4.3-11.1)
[2021-02-25 14:46] LABS: Eosinophils # 0.1 K/mcL (0.0-0.6); Hematocrit 31.6 % (37.5-50.1); Hemoglobin 9.7 g/dL (12.9-16.9); Mean Corpuscular HGB Conc 30.7 g/dL (31.6-35.5); Mean Corpuscular Volume 91.1 fL (83.0-100.0); Neutrophils # 0.5 K/mcL (1.6-8.9); Platelet Count 179 K/mcL (140-400); Red Blood Count 3.47 M/mcL (4.19-5.50); Red Cell Distribution Width 15.4 % (11.5-14.5)
[2021-02-25 15:05] LABS: Calcium 9.5 mg/dL (8.6-10.3); Magnesium 2.1 mg/dL (1.6-2.6); Potassium 4.2 mEq/L (3.5-5.1)
[2021-02-25 15:15] LABS: Anisocytosis 1+ (Not Present); Lymphocytes # 0.5 K/mcL (0.6-4.6); Monocytes # 0.3 K/mcL (0.0-1.3); Platelet Estimate Normal (Normal); Poikilocytosis 1+ (Not Present)
[2021-02-25] MEDS: Mirtazapine 15 MG TABLET PO SCH (20:24)
[2021-02-25] MEDS ORDERED: Mirtazapine 15 MG TABLET PO SCH (21:00)
[2021-02-26] MEDS: *HR* OxyCODONE/APAP 10/325 TABLET PO PRN ×3 (03:27→22:51)
[2021-02-26] MEDS: Insulin LISPRO 300 UNITS/3 ML VIAL SUBQ SCH ×4 (08:53→20:59)
[2021-02-26] MEDS: polyethylene glycoL 3350 17 GM POWD.PACK PO SCH (08:58)
[2021-02-26] MEDS: *HR* Amiodarone 200 MG TABLET PO SCH ×2 (09:02→21:16)
[2021-02-26] MEDS: Aspirin 81 MG TAB.CHEW PO SCH (09:02)
[2021-02-26] MEDS: Metoprolol XL (24 HR) Succ 25 MG TAB.ER.24H PO SCH (09:03)
[2021-02-26] MEDS: lisinopriL 5 MG TABLET PO SCH (10:47)
[2021-02-26] MEDS: Spironolactone 12.5 MG TABLET PO SCH (10:47)
[2021-02-26 11:00] LABS: Hematocrit 27.7 % (37.5-50.1); Hemoglobin 8.6 g/dL (12.9-16.9); Lymphocytes # 0.2 K/mcL (0.6-4.6); Mean Corpuscular Hemoglobin 27.7 pg (28.0-33.3); Mean Corpuscular Volume 89.1 fL (83.0-100.0); Mean Platelet Volume 10.5 fL (9.4-12.4); Platelet Count 166 K/mcL (140-400); Red Blood Count 3.11 M/mcL (4.19-5.50); Red Cell Distribution Width 15.3 % (11.5-14.5); White Blood Count 1.2 K/mcL (4.3-11.1)
[2021-02-26 11:18] LABS: BUN/Creatinine Ratio 16 (6-26); Blood Urea Nitrogen 21 mg/dL (8-23); Calcium 9.1 mg/dL (8.6-10.3); Carbon Dioxide 26 mEq/L (23-29); Chloride 103 mEq/L (98-107); Glucose 164 mg/dL (70-105); Magnesium 1.9 mg/dL (1.6-2.6); Osmolality,Calculated 289 (280-300); Potassium 3.8 mEq/L (3.5-5.1); Sodium 136 mEq/L (136-145); eGFR For African Americans > 60 (> 60); eGFR For Non-African Americans 55 (> 60)
[2021-02-26 11:48] LABS: Eosinophils # 0.2 K/mcL (0.0-0.6); Monocytes # 0.2 K/mcL (0.0-1.3); Neutrophils # 0.6 K/mcL (1.6-8.9)
[2021-02-26 11:49] LABS: Platelet Estimate Normal (Normal)
[2021-02-26] MEDS: Mirtazapine 15 MG TABLET PO SCH (22:51)
[2021-02-27 04:22] LABS: Hematocrit 28.4 % (37.5-50.1); Mean Corpuscular Volume 89.3 fL (83.0-100.0); Red Blood Count 3.18 M/mcL (4.19-5.50)
[2021-02-27 04:23] LABS: Hemoglobin 8.8 g/dL (12.9-16.9); Mean Corpuscular Hemoglobin 27.7 pg (28.0-33.3); Mean Platelet Volume 9.7 fL (9.4-12.4); Platelet Count 157 K/mcL (140-400); Red Cell Distribution Width 15.3 % (11.5-14.5)
[2021-02-27 04:35] LABS: BUN/Creatinine Ratio 16 (6-26); Blood Urea Nitrogen 21 mg/dL (8-23); Calcium 8.9 mg/dL (8.6-10.3); Carbon Dioxide 25 mEq/L (23-29); Chloride 103 mEq/L (98-107); Glucose 111 mg/dL (70-105); Magnesium 1.8 mg/dL (1.6-2.6); Osmolality,Calculated 286 (280-300); Potassium 4.2 mEq/L (3.5-5.1); Sodium 136 mEq/L (136-145); eGFR For African Americans > 60 (> 60); eGFR For Non-African Americans 55 (> 60)
[2021-02-27 04:52] LABS: White Blood Count 1.1 K/mcL (4.3-11.1)
[2021-02-27 04:57] LABS: Eosinophils # 0.1 K/mcL (0.0-0.6); Lymphocytes # 0.4 K/mcL (0.6-4.6); Monocytes # 0.1 K/mcL (0.0-1.3); Neutrophils # 0.5 K/mcL (1.6-8.9)
[2021-02-27] MEDS: *HR* OxyCODONE/APAP 10/325 TABLET PO PRN ×3 (05:22→20:30)
[2021-02-27] MEDS: Metoprolol XL (24 HR) Succ 25 MG TAB.ER.24H PO SCH (09:35)
[2021-02-27] MEDS: Insulin LISPRO 300 UNITS/3 ML VIAL SUBQ SCH ×4 (09:35→20:54)
[2021-02-27] MEDS: Spironolactone 12.5 MG TABLET PO SCH (09:35)
[2021-02-27] MEDS: *HR* Amiodarone 200 MG TABLET PO SCH ×2 (09:36→20:30)
[2021-02-27] MEDS: polyethylene glycoL 3350 17 GM POWD.PACK PO SCH (09:36)
[2021-02-27] MEDS: lisinopriL 5 MG TABLET PO SCH (09:36)
[2021-02-27] MEDS: Aspirin 81 MG TAB.CHEW PO SCH (09:42)
[2021-02-27] MEDS: Stomatitis Mixture 5 ML UDC PO SCH ×3 (13:15→17:45)
[2021-02-27] MEDS ORDERED: Magic Mouthwash 10 ML UD Cup PO SCH (16:30)
[2021-02-27] MEDS ORDERED: Mirtazapine 15 MG TABLET PO SCH (21:00)
[2021-02-28] MEDS: *HR* OxyCODONE/APAP 10/325 TABLET PO PRN ×4 (02:30→23:26)
[2021-02-28 02:59] LABS: Eosinophils # 0.1 K/mcL (0.0-0.6); Hematocrit 26.8 % (37.5-50.1); Hemoglobin 8.3 g/dL (12.9-16.9); Mean Corpuscular Hemoglobin 27.7 pg (28.0-33.3); Mean Corpuscular Volume 89.3 fL (83.0-100.0); Mean Platelet Volume 9.9 fL (9.4-12.4); Platelet Count 158 K/mcL (140-400); Red Cell Distribution Width 15.4 % (11.5-14.5); White Blood Count 1.2 K/mcL (4.3-11.1)
[2021-02-28 03:14] LABS: BUN/Creatinine Ratio 17 (6-26); Blood Urea Nitrogen 21 mg/dL (8-23); Calcium 8.9 mg/dL (8.6-10.3); Carbon Dioxide 27 mEq/L (23-29); Chloride 102 mEq/L (98-107); Glucose 108 mg/dL (70-105); Osmolality,Calculated 284 (280-300); Potassium 4.7 mEq/L (3.5-5.1); Sodium 135 mEq/L (136-145); eGFR For African Americans > 60 (> 60); eGFR For Non-African Americans 59 (> 60)
[2021-02-28 03:32] LABS: Anisocytosis 1+ (Not Present); Lymphocytes # 0.4 K/mcL (0.6-4.6); Monocytes # 0.2 K/mcL (0.0-1.3); Neutrophils # 0.5 K/mcL (1.6-8.9); Platelet Estimate Normal (Normal); Poikilocytosis 1+ (Not Present)
[2021-02-28] MEDS: Insulin LISPRO 300 UNITS/3 ML VIAL SUBQ SCH ×4 (08:09→20:58)
[2021-02-28] MEDS: Aspirin 81 MG TAB.CHEW PO SCH (08:17)
[2021-02-28] MEDS: Spironolactone 12.5 MG TABLET PO SCH (08:17)
[2021-02-28] MEDS: lisinopriL 5 MG TABLET PO SCH (08:17)
[2021-02-28] MEDS: *HR* Amiodarone 200 MG TABLET PO SCH ×2 (08:17→20:47)
[2021-02-28] MEDS: Metoprolol XL (24 HR) Succ 25 MG TAB.ER.24H PO SCH (08:17)
[2021-02-28] MEDS: polyethylene glycoL 3350 17 GM POWD.PACK PO SCH (08:18)
[2021-02-28] MEDS: Stomatitis Mixture 5 ML UDC PO SCH ×4 (08:25→16:30)
[2021-02-28] MEDS ORDERED: Mirtazapine 15 MG TABLET PO SCH (21:00)
[2021-03-01 04:59] LABS: Basophils % 0.8 %; Red Cell Distribution Width 15.6 % (11.5-14.5)
[2021-03-01 05:00] LABS: Eosinophils # 0.1 K/mcL (0.0-0.6); Eosinophils % 5.3 %; Hemoglobin 8.2 g/dL (12.9-16.9); Immature Granulocytes % 1.5 % (0-4); Lymphocytes # 0.3 K/mcL (0.6-4.6); Lymphocytes % 19.1 %; Mean Corpuscular HGB Conc 30.4 g/dL (31.6-35.5); Mean Corpuscular Hemoglobin 26.8 pg (28.0-33.3); Mean Corpuscular Volume 88.2 fL (83.0-100.0); Mean Platelet Volume 9.6 fL (9.4-12.4); Monocytes # 0.4 K/mcL (0.0-1.3); Neutrophils # 0.6 K/mcL (1.6-8.9); Platelet Count 149 K/mcL (140-400); Red Blood Count 3.06 M/mcL (4.19-5.50); Segmented Neutrophils % 44.3 %; White Blood Count 1.3 K/mcL (4.3-11.1)
[2021-03-01 05:15] LABS: BUN/Creatinine Ratio 16 (6-26); Blood Urea Nitrogen 21 mg/dL (8-23); Calcium 9.4 mg/dL (8.6-10.3); Carbon Dioxide 27 mEq/L (23-29); Chloride 102 mEq/L (98-107); Glucose 105 mg/dL (70-105); Magnesium 2.1 mg/dL (1.6-2.6); Osmolality,Calculated 283 (280-300); Potassium 4.5 mEq/L (3.5-5.1); Sodium 135 mEq/L (136-145); eGFR For African Americans > 60 (> 60); eGFR For Non-African Americans 56 (> 60)
[2021-03-01 05:36] LABS: Platelet Estimate Normal (Normal)
[2021-03-01] MEDS: *HR* OxyCODONE/APAP 10/325 TABLET PO PRN (06:41)
[2021-03-01] MEDS ORDERED: Acetaminophen 325 MG TABLET PO PRN (08:53)
[2021-03-01] MEDS ORDERED: *HR* OxyCODONE/APAP 10/325 TABLET PO PRN (08:53)
[2021-03-01] MEDS: Spironolactone 12.5 MG TABLET PO SCH (08:56)
[2021-03-01] MEDS: polyethylene glycoL 3350 17 GM POWD.PACK PO SCH (08:57)
[2021-03-01] MEDS: Aspirin 81 MG TAB.CHEW PO SCH (08:57)
[2021-03-01] MEDS: Metoprolol XL (24 HR) Succ 25 MG TAB.ER.24H PO SCH (08:57)
[2021-03-01] MEDS: *HR* Amiodarone 200 MG TABLET PO SCH (08:57)
[2021-03-01] MEDS: Insulin LISPRO 300 UNITS/3 ML VIAL SUBQ SCH ×2 (08:57→11:37)
[2021-03-01] MEDS: Stomatitis Mixture 5 ML UDC PO SCH ×2 (08:57→11:36)
[2021-03-01 09:38] LABS: Alpha 2 Globulin (PEP) 0.99 g/dL (0.48-1.05); Beta Globulin (PEP) 0.71 g/dL (0.48-1.10)
[2021-03-01 10:02] LABS: Immunoglobulin A 84 mg/dL (68-408); Immunoglobulin G 880 mg/dL (768-1632); Immunoglobulin M 31 mg/dL (35-263)
[2021-03-01 10:03] LABS: IFE Reflexed IFE Done
[2021-03-01 16:11] VITALS: BP 104/61
== END 2021-03-01 13:04 | disposition home health service (06) | DRG 919 ==
LOC: 2ANU 12:32 → EMEROOARM 12:32 → SUATTDRO 14:43 → 2NNU 15:08 → SUATTDRO 02-23 21:00 → 2ANU 02-26 15:53
PROVIDERS: ADMIT Internal Medicine; ATTEND Internal Medicine
PROC: IRDRAIN (2021-02-21 14:30)

== ENCOUNTER 2021-07-27 13:14 | Inpatient (IN) ==
[2021-07-27] MEDS ORDERED: 0.9 % Sodium Chloride 500 ML ONE (14:51)
[2021-07-27] MEDS ORDERED: 0.9 % Sodium Chloride 500 ML IVC PRN (14:54)
[2021-07-27] MEDS ORDERED: Zoledronic Acid (Zometa) 4 MG in 0.9 % Sodium Chloride 100 ML IV ONE (14:58)
[2021-07-27] MEDS ORDERED: Naloxone 0.4 MG/ML INJ IVP PRN (15:11)
[2021-07-27] MEDS ORDERED: D5% in Water 1,000 ML IVC PRN (15:35)
[2021-07-27] MEDS ORDERED: Dextrose Gel 15 GM/37.5 ML TUBE PO PRN ×2 (15:35)
[2021-07-27] MEDS ORDERED: *HR* Dextrose 50 % in Water (Vial) 50 ML VIAL IVP PRN (15:35)
[2021-07-27] MEDS ORDERED: SODIUM CHLORIDE 0.9% IV ONE (16:30)
[2021-07-27] MEDS ORDERED: RASBURICASE IV ONE (16:30)
[2021-07-27] MEDS: 0.9 % Sodium Chloride 1,000 ML IVC SCH (17:47)
[2021-07-27] MEDS: *HR* HYDROcodone/Acet 10/325 mg TABLET PO SCH ×2 (17:47→23:58)
[2021-07-27] MEDS: allopurinoL 300 MG TABLET PO SCH (17:52)
[2021-07-27] MEDS: *HR* Heparin 5,000 UNIT/ML VIAL SQ SCH (17:54)
[2021-07-27] MEDS: Insulin LISPRO 300 UNITS/3 ML VIAL SUBQ SCH (18:35)
[2021-07-27] MEDS ORDERED: Simethicone 80 MG TAB.CHEW PO PRN (23:47)
[2021-07-28] MEDS ORDERED: Melatonin 3 MG TABLET PO ONE ×2 (03:44→21:07)
[2021-07-28] MEDS: *HR* Heparin 5,000 UNIT/ML VIAL SQ SCH ×2 (06:08→18:20)
[2021-07-28] MEDS: 0.9 % Sodium Chloride 1,000 ML IVC SCH ×3 (06:16→16:43)
[2021-07-28 07:04] LABS: Basophils % 0.8 %; Eosinophils # 0.1 K/mcL (0.0-0.6); Eosinophils % 5.5 %; Hematocrit 33.6 % (37.5-50.1); Immature Granulocytes % 1.6 % (0-4); Immature Platelets 3.5 % (1.1-6.1); Lymphocytes # 0.2 K/mcL (0.6-4.6); Lymphocytes % 15.7 %; Mean Corpuscular HGB Conc 32.7 g/dL (31.6-35.5); Mean Corpuscular Hemoglobin 29.3 pg (28.0-33.3); Mean Corpuscular Volume 89.6 fL (83.0-100.0); Mean Platelet Volume 10.5 fL (9.4-12.4); Monocytes # 0.3 K/mcL (0.0-1.3); Monocytes % 23.6 %; Neutrophils # 0.7 K/mcL (1.6-8.9); Platelet Count 101 K/mcL (140-400); Red Blood Count 3.75 M/mcL (4.19-5.50); Red Cell Distribution Width 14.4 % (11.5-14.5); Segmented Neutrophils % 52.8 %; White Blood Count 1.3 K/mcL (4.3-11.1)
[2021-07-28 07:19] LABS: Prothrombin Time 11.5 Seconds (9.4-12.1)
[2021-07-28 07:26] LABS: Calcium 10.7 mg/dL (8.6-10.3); Magnesium 1.7 mg/dL (1.6-2.6); Phosphorous 3.5 mg/dL (2.7-4.5); Potassium 4.1 mEq/L (3.5-5.1)
[2021-07-28 09:38] LABS: Platelet Estimate Slight Decrease (Normal)
[2021-07-28] MEDS: Insulin LISPRO 300 UNITS/3 ML VIAL SUBQ SCH ×3 (10:24→17:23)
[2021-07-28] MEDS: *HR* HYDROcodone/Acet 10/325 mg TABLET PO SCH ×2 (10:24→16:42)
[2021-07-28] MEDS: allopurinoL 300 MG TABLET PO SCH (10:25)
[2021-07-28] MEDS: Ondansetron 4 MG/2 ML VIAL IVP PRN (21:01)
[2021-07-28] MEDS ORDERED: *HR* OxyCODONE Immed Rel 5 MG TABLET PO ONE (21:42)
[2021-07-28] MEDS: Sennosides/Docusate Sodium TABLET PO SCH (22:03)
[2021-07-29] MEDS: 0.9 % Sodium Chloride 1,000 ML IVC SCH ×4 (00:30→23:16)
[2021-07-29] MEDS: *HR* HYDROcodone/Acet 10/325 mg TABLET PO SCH ×4 (00:32→12:50)
[2021-07-29] MEDS: *HR* Heparin 5,000 UNIT/ML VIAL SQ SCH ×2 (06:20→17:37)
[2021-07-29 06:36] LABS: Mean Corpuscular HGB Conc 32.6 g/dL (31.6-35.5)
[2021-07-29 06:38] LABS: Hematocrit 32.8 % (37.5-50.1); Hemoglobin 10.7 g/dL (12.9-16.9); Mean Corpuscular Hemoglobin 29.1 pg (28.0-33.3); Mean Corpuscular Volume 89.1 fL (83.0-100.0); Mean Platelet Volume 10.7 fL (9.4-12.4); Red Blood Count 3.68 M/mcL (4.19-5.50); Red Cell Distribution Width 14.3 % (11.5-14.5); White Blood Count 1.2 K/mcL (4.3-11.1)
[2021-07-29 06:54] LABS: Calcium 9.8 mg/dL (8.6-10.3); Magnesium 1.6 mg/dL (1.6-2.6); Potassium 3.9 mEq/L (3.5-5.1); Uric Acid 5.8 mg/dL (2.3-7.6)
[2021-07-29] MEDS: Insulin LISPRO 300 UNITS/3 ML VIAL SUBQ SCH ×3 (07:23→16:36)
[2021-07-29] MEDS: allopurinoL 300 MG TABLET PO SCH (09:10)
[2021-07-29] MEDS: Aspirin Enteric Coated 81 MG Tablet PO SCH (09:10)
[2021-07-29] MEDS: Sennosides/Docusate Sodium TABLET PO SCH ×2 (09:11→21:18)
[2021-07-29] MEDS: *HR* Amiodarone 200 MG TABLET PO SCH (09:11)
[2021-07-29] MEDS: polyethylene glycoL 3350 17 GM POWD.PACK PO SCH (09:11)
[2021-07-29 10:53] LABS: Bilirubin,Urine Negative (Negative); Blood,Urine Negative (Negative); Clarity,Urine Clear (Clear); Color,Urine Yellow (Yellow); Glucose,Urine (UA) Normal (Normal); Ketones,Urine Negative (Negative); Leukocyte Esterase,Urine Negative (Negative); Nitrite,Urine Negative (Negative); PH,Urine 5.5 pH Units (5.0-8.0); Protein,Urine Negative (Neg-Trace); Specific Gravity,Urine 1.019 (1.010-1.025); Urobilinogen,Urine Normal (Normal)
[2021-07-29] MEDS: *HR* OxyCODONE/APAP 5/325 TABLET PO SCH ×2 (16:43→17:38)
[2021-07-29] MEDS: Ondansetron 4 MG/2 ML VIAL IVP PRN (19:54)
[2021-07-29] MEDS ORDERED: Prochlorperazine 10 MG/2 ML VIAL IVP ONE (23:00)
[2021-07-30] MEDS: *HR* OxyCODONE/APAP 5/325 TABLET PO SCH ×5 (00:45→23:40)
[2021-07-30] MEDS: *HR* Heparin 5,000 UNIT/ML VIAL SQ SCH ×2 (06:00→17:40)
[2021-07-30 06:29] LABS: Basophils % 0.7 %
[2021-07-30 06:31] LABS: Eosinophils # 0.4 K/mcL (0.0-0.6); Eosinophils % 6.8 %; Hematocrit 33.1 % (37.5-50.1); Hemoglobin 9.7 g/dL (12.9-16.9); Immature Granulocytes % 0.5 % (0-4); Lymphocytes # 0.8 K/mcL (0.6-4.6); Lymphocytes % 14.9 %; Mean Corpuscular HGB Conc 29.3 g/dL (31.6-35.5); Mean Corpuscular Hemoglobin 26.7 pg (28.0-33.3); Mean Corpuscular Volume 91.2 fL (83.0-100.0); Mean Platelet Volume 10.4 fL (9.4-12.4); Monocytes # 0.7 K/mcL (0.0-1.3); Monocytes % 12.8 %; Neutrophils # 3.6 K/mcL (1.6-8.9); Platelet Count 139 K/mcL (140-400); Red Blood Count 3.63 M/mcL (4.19-5.50); Segmented Neutrophils % 64.3 %; White Blood Count 5.6 K/mcL (4.3-11.1)
[2021-07-30 07:06] LABS: BUN/Creatinine Ratio 23 (6-26); Blood Urea Nitrogen 25 mg/dL (8-23); Calcium 8.6 mg/dL (8.6-10.3); Carbon Dioxide 27 mEq/L (23-29); Chloride 106 mEq/L (98-107); Glucose 175 mg/dL (70-105); Osmolality,Calculated 301 (280-300); Potassium 4.1 mEq/L (3.5-5.1); Sodium 141 mEq/L (136-145); eGFR For African Americans > 60 (> 60); eGFR For Non-African Americans > 60 (> 60)
[2021-07-30] MEDS ORDERED: *HR* Propofol 200 MG/20 ML VIAL IVP ONE (07:55)
[2021-07-30] MEDS ORDERED: *HR* FentaNYL (PF) 100 MCG/2 ML VIAL ONE (07:55)
[2021-07-30] MEDS ORDERED: *HR* Rocuronium Bromide 50 MG/5 ML VIAL ONE (07:58)
[2021-07-30] MEDS ORDERED: Lidocaine HCL 4 ML Topical Solution (Laryng-O-Jet Kit Sterile Pak) TP ONE (07:58)
[2021-07-30] MEDS: *HR* Amiodarone 200 MG TABLET PO SCH (08:17)
[2021-07-30] MEDS: Insulin LISPRO 300 UNITS/3 ML VIAL SUBQ SCH ×3 (08:17→17:37)
[2021-07-30 08:20] LABS: Anisocytosis 3+ (Not Present)
[2021-07-30 08:21] LABS: Tear Drop Cells 1+ (Not Present)
[2021-07-30 08:22] LABS: Platelet Estimate Normal (Normal)
[2021-07-30] MEDS ORDERED: Ondansetron 4 MG/2 ML VIAL ONE (09:10)
[2021-07-30] MEDS ORDERED: Clindamycin 900 MG/50 ML 900 MG/50 ML IV.SOLN IVPB ONE (09:20)
[2021-07-30] MEDS ORDERED: Sugammadex Sodium 200 MG/2 ML VIAL IV ONE (09:41)
[2021-07-30] MEDS ORDERED: Ondansetron 4 MG/2 ML VIAL IVP PRN ×2 (09:48→11:03)
[2021-07-30] MEDS ORDERED: *HR* HYDROmorphone PF 0.5 MG/0.5 ML SYRINGE IVP PRN (09:48)
[2021-07-30] MEDS ORDERED: 0.9 % Sodium Chloride 1,000 ML IVC SCH (10:55)
[2021-07-30] MEDS ORDERED: Naloxone 0.4 MG/ML INJ IVP PRN (11:03)
[2021-07-30] MEDS ORDERED: *HR* Dextrose 50 % in Water (Vial) 50 ML VIAL IVP PRN (11:03)
[2021-07-30] MEDS ORDERED: Simethicone 80 MG TAB.CHEW PO PRN (11:03)
[2021-07-30] MEDS ORDERED: D5% in Water 1,000 ML IVC PRN (11:03)
[2021-07-30] MEDS ORDERED: Dextrose Gel 15 GM/37.5 ML TUBE PO PRN ×2 (11:03)
[2021-07-30] MEDS: Sennosides/Docusate Sodium TABLET PO SCH ×2 (13:21→21:29)
[2021-07-30] MEDS: polyethylene glycoL 3350 17 GM POWD.PACK PO SCH (13:21)
[2021-07-30] MEDS: Aspirin Enteric Coated 81 MG Tablet PO SCH (13:21)
[2021-07-30] MEDS: allopurinoL 300 MG TABLET PO SCH (13:22)
[2021-07-30] MEDS ORDERED: dexAMETHasone 4 MG TABLET PO ONE (17:22)
[2021-07-30] MEDS ORDERED: Melatonin 3 MG TABLET PO PRN (21:44)
[2021-07-30] MEDS ORDERED: Melatonin 3 MG TABLET PO ONE (21:56)
[2021-07-31] MEDS ORDERED: WATER IV SCH
[2021-07-31] MEDS ORDERED: OXALIPLATIN IV SCH
[2021-07-31] MEDS ORDERED: D5 IV SCH
[2021-07-31] MEDS ORDERED: Acetaminophen 325 MG TABLET PO ONE
[2021-07-31] MEDS ORDERED: *HR* LORazepam 2 MG/ML VIAL IVP PRN
[2021-07-31] MEDS ORDERED: GEMCITABINE HCL IV SCH
[2021-07-31] MEDS ORDERED: Hydrocortisone Sodium Succ 100 MG/2 ML VIAL IVP PRN
[2021-07-31] MEDS ORDERED: SODIUM CHLORIDE 0.9% IV SCH
[2021-07-31] MEDS ORDERED: EPINEPHrine 1 MG/ML VIAL SQ PRN
[2021-07-31] MEDS ORDERED: Dexamethasone Sodium Phos/PF 10 MG/ML VIAL IVP ONE
[2021-07-31] MEDS ORDERED: *HR* Meperidine 25 MG/ML SYRINGE IVP PRN
[2021-07-31] MEDS ORDERED: Prochlorperazine 10 MG/2 ML VIAL IVP PRN
[2021-07-31] MEDS ORDERED: D5% in Water 500 ML IVC SCH
[2021-07-31] MEDS: *HR* Heparin 5,000 UNIT/ML VIAL SQ SCH ×2 (06:09→18:06)
[2021-07-31] MEDS: *HR* OxyCODONE/APAP 5/325 TABLET PO SCH ×4 (06:09→23:35)
[2021-07-31] MEDS: Insulin LISPRO 300 UNITS/3 ML VIAL SUBQ SCH ×3 (08:45→18:07)
[2021-07-31] MEDS: Sennosides/Docusate Sodium TABLET PO SCH ×2 (08:58→20:54)
[2021-07-31] MEDS: allopurinoL 300 MG TABLET PO SCH (08:59)
[2021-07-31] MEDS: Aspirin Enteric Coated 81 MG Tablet PO SCH (08:59)
[2021-07-31] MEDS: *HR* Amiodarone 200 MG TABLET PO SCH (08:59)
[2021-07-31] MEDS ORDERED: dexAMETHasone 4 MG TABLET PO ONE (09:00)
[2021-07-31] MEDS: polyethylene glycoL 3350 17 GM POWD.PACK PO SCH (09:00)
[2021-07-31 13:32] LABS: Alanine Aminotransferase 13 Units/L (7-52); Albumin/Globulin Ratio 1.5 (1.1-2.2); Alkaline Phosphatase 83 Units/L (34-104); Aspartate Amino Transferase 30 Units/L (13-39); BUN/Creatinine Ratio 18 (6-26); Bilirubin,Total 0.5 mg/dL (0.3-1.0); Blood Urea Nitrogen 25 mg/dL (8-23); Calcium 9.9 mg/dL (8.6-10.3); Carbon Dioxide 23 mEq/L (23-29); Chloride 101 mEq/L (98-107); Globulin 2.7 g/dL (2.4-3.5); Glucose 152 mg/dL (70-105); Osmolality,Calculated 287 (280-300); Potassium 4.1 mEq/L (3.5-5.1); Sodium 135 mEq/L (136-145); Total Protein 6.7 g/dL (6.4-8.9); eGFR For African Americans > 60 (> 60); eGFR For Non-African Americans 51 (> 60)
[2021-08-01] MEDS: Melatonin 3 MG TABLET PO PRN ×2 (02:46→23:13)
[2021-08-01] MEDS: *HR* Heparin 5,000 UNIT/ML VIAL SQ SCH ×2 (05:09→17:52)
[2021-08-01] MEDS: *HR* OxyCODONE/APAP 5/325 TABLET PO SCH ×4 (05:09→23:13)
[2021-08-01 05:43] LABS: Basophils % 0.3 %; Hematocrit 31.5 % (37.5-50.1); Hemoglobin 10.5 g/dL (12.9-16.9); Immature Granulocytes % 12.3 % (0-4); Lymphocytes # 0.2 K/mcL (0.6-4.6); Lymphocytes % 6.9 %; Mean Corpuscular HGB Conc 33.3 g/dL (31.6-35.5); Mean Corpuscular Hemoglobin 29.4 pg (28.0-33.3); Mean Corpuscular Volume 88.2 fL (83.0-100.0); Mean Platelet Volume 10.3 fL (9.4-12.4); Monocytes % 20.2 %; Neutrophils # 1.9 K/mcL (1.6-8.9); Platelet Count 142 K/mcL (140-400); Red Blood Count 3.57 M/mcL (4.19-5.50); Red Cell Distribution Width 14.5 % (11.5-14.5); Segmented Neutrophils % 60.3 %; White Blood Count 3.2 K/mcL (4.3-11.1)
[2021-08-01 05:59] LABS: Monocytes # 0.7 K/mcL (0.0-1.3)
[2021-08-01 06:06] LABS: Calcium 9.6 mg/dL (8.6-10.3); Potassium 4.5 mEq/L (3.5-5.1); Uric Acid 4.8 mg/dL (2.3-7.6)
[2021-08-01 06:27] LABS: Troponin I 0.03 ng/mL (< 0.04)
[2021-08-01 06:44] LABS: Magnesium 2.1 mg/dL (1.6-2.6)
[2021-08-01 06:57] LABS: Anisocytosis 2+ (Not Present); Platelet Estimate Normal (Normal); Poikilocytosis 1+ (Not Present)
[2021-08-01] MEDS: Insulin LISPRO 300 UNITS/3 ML VIAL SUBQ SCH ×3 (08:54→17:51)
[2021-08-01] MEDS: polyethylene glycoL 3350 17 GM POWD.PACK PO SCH (09:04)
[2021-08-01] MEDS: *HR* Amiodarone 200 MG TABLET PO SCH (09:05)
[2021-08-01] MEDS: Aspirin Enteric Coated 81 MG Tablet PO SCH (09:05)
[2021-08-01] MEDS: Sennosides/Docusate Sodium TABLET PO SCH ×2 (09:05→20:44)
[2021-08-01] MEDS: allopurinoL 300 MG TABLET PO SCH (09:05)
[2021-08-01] MEDS: 0.9 % Sodium Chloride 1,000 ML IVC SCH ×2 (09:12→20:44)
[2021-08-01] MEDS ORDERED: EPINEPHrine 1 MG/ML VIAL SQ PRN (11:30)
[2021-08-01] MEDS ORDERED: D5% in Water 500 ML IVC SCH (11:30)
[2021-08-01] MEDS ORDERED: Hydrocortisone Sodium Succ 100 MG/2 ML VIAL IVP PRN (11:30)
[2021-08-01] MEDS ORDERED: Prochlorperazine 10 MG/2 ML VIAL IVP PRN (11:30)
[2021-08-01] MEDS ORDERED: *HR* LORazepam 2 MG/ML VIAL IVP PRN (11:30)
[2021-08-01] MEDS ORDERED: Dexamethasone Sodium Phos/PF 10 MG/ML VIAL IVP SCH (11:30)
[2021-08-01] MEDS ORDERED: SODIUM CHLORIDE 0.9% IVPB SCH (12:00)
[2021-08-01] MEDS ORDERED: GEMCITABINE HCL IVPB SCH (12:00)
[2021-08-01] MEDS ORDERED: D5 IV SCH (12:30)
[2021-08-01] MEDS ORDERED: WATER IV SCH (12:30)
[2021-08-01] MEDS ORDERED: OXALIPLATIN IV SCH (12:30)
[2021-08-02] MEDS: *HR* Heparin 5,000 UNIT/ML VIAL SQ SCH ×2 (06:03→18:40)
[2021-08-02] MEDS: 0.9 % Sodium Chloride 1,000 ML IVC SCH (06:04)
[2021-08-02] MEDS: *HR* OxyCODONE/APAP 5/325 TABLET PO SCH ×3 (06:08→18:36)
[2021-08-02 07:46] LABS: White Blood Count 2.2 K/mcL (4.3-11.1)
[2021-08-02 07:47] LABS: Hematocrit 31.4 % (37.5-50.1); Hemoglobin 10.2 g/dL (12.9-16.9); Mean Corpuscular HGB Conc 32.5 g/dL (31.6-35.5); Mean Corpuscular Hemoglobin 29.2 pg (28.0-33.3); Mean Platelet Volume 9.7 fL (9.4-12.4); Monocytes # 0.4 K/mcL (0.0-1.3); Platelet Count 118 K/mcL (140-400); Red Blood Count 3.49 M/mcL (4.19-5.50); Red Cell Distribution Width 14.9 % (11.5-14.5)
[2021-08-02] MEDS: Insulin LISPRO 300 UNITS/3 ML VIAL SUBQ SCH ×3 (08:53→16:21)
[2021-08-02] MEDS: Aspirin Enteric Coated 81 MG Tablet PO SCH (08:54)
[2021-08-02] MEDS: *HR* Amiodarone 200 MG TABLET PO SCH (08:54)
[2021-08-02] MEDS: Sennosides/Docusate Sodium TABLET PO SCH ×2 (08:54→20:31)
[2021-08-02] MEDS: polyethylene glycoL 3350 17 GM POWD.PACK PO SCH (08:55)
[2021-08-02] MEDS: allopurinoL 300 MG TABLET PO SCH (08:55)
[2021-08-02 09:28] LABS: Lymphocytes # 0.2 K/mcL (0.6-4.6); Neutrophils # 1.6 K/mcL (1.6-8.9)
[2021-08-02 09:29] LABS: Large Platelets Present (Not Present); Platelet Estimate Slight Decrease (Normal)
[2021-08-02 11:01] LABS: Calcium 8.6 mg/dL (8.6-10.3); Chloride 105 mEq/L (98-107); Glucose 122 mg/dL (70-105); Potassium 4.4 mEq/L (3.5-5.1); Sodium 135 mEq/L (136-145)
[2021-08-02 11:24] LABS: BUN/Creatinine Ratio 23 (6-26); Blood Urea Nitrogen 33 mg/dL (8-23); Carbon Dioxide 24 mEq/L (23-29); Osmolality,Calculated 289 (280-300); eGFR For African Americans > 60 (> 60); eGFR For Non-African Americans 50 (> 60)
[2021-08-02] MEDS ORDERED: 0.9 % Sodium Chloride 1,000 ML IVC SCH (16:30)
[2021-08-02] MEDS: Melatonin 3 MG TABLET PO PRN (22:26)
[2021-08-03] MEDS: *HR* OxyCODONE/APAP 5/325 TABLET PO SCH ×3 (05:33→12:01)
[2021-08-03] MEDS: *HR* Heparin 5,000 UNIT/ML VIAL SQ SCH (05:36)
[2021-08-03 07:59] VITALS: BP 132/91; PULSE 76; TEMP 98.8; O2SAT 96
[2021-08-03] MEDS: allopurinoL 300 MG TABLET PO SCH (09:30)
[2021-08-03] MEDS: *HR* Amiodarone 200 MG TABLET PO SCH (09:30)
[2021-08-03] MEDS: Aspirin Enteric Coated 81 MG Tablet PO SCH (09:30)
[2021-08-03] MEDS: Sennosides/Docusate Sodium TABLET PO SCH (09:32)
[2021-08-03] MEDS: Insulin LISPRO 300 UNITS/3 ML VIAL SUBQ SCH (09:32)
[2021-08-03] MEDS: polyethylene glycoL 3350 17 GM POWD.PACK PO SCH (09:32)
[2021-08-03 10:40] LABS: Basophils % 1.1 %; Eosinophils % 4.3 %; Hematocrit 31.7 % (37.5-50.1); Hemoglobin 10.4 g/dL (12.9-16.9); Immature Granulocytes % 6.5 % (0-4); Lymphocytes # 0.1 K/mcL (0.6-4.6); Lymphocytes % 10.8 %; Mean Corpuscular HGB Conc 32.8 g/dL (31.6-35.5); Mean Corpuscular Hemoglobin 29.2 pg (28.0-33.3); Mean Platelet Volume 10.2 fL (9.4-12.4); Monocytes # 0.1 K/mcL (0.0-1.3); Monocytes % 10.8 %; Neutrophils # 0.6 K/mcL (1.6-8.9); Red Blood Count 3.56 M/mcL (4.19-5.50); Red Cell Distribution Width 14.7 % (11.5-14.5); Segmented Neutrophils % 66.5 %
[2021-08-03 10:42] LABS: Platelet Count 96 K/mcL (140-400)
[2021-08-03 10:45] LABS: White Blood Count 0.9 K/mcL (4.3-11.1)
[2021-08-03 11:01] LABS: Calcium 8.6 mg/dL (8.6-10.3); Phosphorous 3.4 mg/dL (2.7-4.5); Uric Acid 5.6 mg/dL (2.3-7.6)
[2021-08-03 11:08] LABS: Platelet Estimate Decreased (Normal)
== END 2021-08-03 14:02 | disposition home or self-care (01) | DRG 987 ==
LOC: 2ANU → SUATTDRO 13:18 → 3ANU 16:16
PROVIDERS: ADMIT Internal Medicine; ATTEND Internal Medicine

== ENCOUNTER 2021-09-20 10:49 | Inpatient (IN) ==
[2021-09-20] MEDS ORDERED: 0.9 % Sodium Chloride 1,000 ML IVC ONE (11:14)
[2021-09-20] MEDS ORDERED: Isovue-370 500 ML BOTTLE IVP ONE (11:14)
[2021-09-20 12:09] LABS: Hemoglobin 9.2 g/dL (12.9-16.9); Mean Platelet Volume 10.8 fL (9.4-12.4); Red Cell Distribution Width 16.5 % (11.5-14.5)
[2021-09-20 12:11] LABS: Hematocrit 28.9 % (37.5-50.1); Immature Platelets 4.9 % (1.1-6.1); Lymphocytes # 0.2 K/mcL (0.6-4.6); Mean Corpuscular HGB Conc 31.8 g/dL (31.6-35.5); Mean Corpuscular Hemoglobin 28.1 pg (28.0-33.3); Mean Corpuscular Volume 88.4 fL (83.0-100.0); Monocytes # 0.6 K/mcL (0.0-1.3); Platelet Count 103 K/mcL (140-400); Red Blood Count 3.27 M/mcL (4.19-5.50); White Blood Count 2.5 K/mcL (4.3-11.1)
[2021-09-20 12:43] LABS: Albumin 3.5 g/dL (3.5-5.7); Albumin/Globulin Ratio 1.2 (1.1-2.2); Bilirubin,Total 0.7 mg/dL (0.3-1.0); Calcium 7.5 mg/dL (8.6-10.3); Globulin 2.9 g/dL (2.4-3.5); Magnesium 1.8 mg/dL (1.6-2.6); Phosphorous 2.6 mg/dL (2.7-4.5); Potassium 3.4 mEq/L (3.5-5.1); Total Protein 6.4 g/dL (6.4-8.9); Troponin I 0.06 ng/mL (< 0.04)
[2021-09-20 12:54] LABS: Neutrophils # 1.7 K/mcL (1.6-8.9); Platelet Estimate Slight Decrease (Normal)
[2021-09-20 12:55] LABS: Anisocytosis 1+ (Not Present); Poikilocytosis 1+ (Not Present)
[2021-09-20 13:38] LABS: Bacteria,Urine Few per hpf (None-Few); Bilirubin,Urine Negative (Negative); Blood,Urine Negative (Negative); Clarity,Urine Turbid (Clear); Color,Urine Yellow (Yellow); Glucose,Urine (UA) Normal (Normal); Granular Casts,Urine Few per lpf (None Seen); Hyaline Casts,Urine Few per lpf (None Seen); Ketones,Urine 10 mg/dL (Negative); Leukocyte Esterase,Urine Negative (Negative); Mucus,Urine Few per lpf (None-Few); Nitrite,Urine Negative (Negative); Protein,Urine 100 mg/dL (Neg-Trace); RBC,Urine 0-3 per hpf (0-3); Specific Gravity,Urine 1.023 (1.010-1.025); Squamous Epithelial Cell,Urine Few per hpf (None-Few); Urobilinogen,Urine Normal (Normal)
[2021-09-20] MEDS: Acetaminophen 325 MG TABLET PO ONE ×2 (13:39→13:56)
[2021-09-20] MEDS ORDERED: Ketorolac 15 MG/ML VIAL IVP ONE (13:44)
[2021-09-20] MEDS ORDERED: diazePAM 10 MG/2 ML SYRINGE IVP STA (13:44)
[2021-09-20] MEDS ORDERED: Piperacillin/Tazobactam 3.375 GM in Water for inj. (sterile) 20 ML IVP ONE (14:00)
[2021-09-20] MEDS ORDERED: Vancomycin 1,250 MG/262.5 ML IV.SOLN IVPB ONE (14:00)
[2021-09-20 14:02] LABS: ABG Base Excess -5 mEq/L (-2 to 3); ABG HCO3 19 mEq/L (21-27); ABG Oxygen Saturation 90 % (95-98); ABG PCO2 30 mmHg (35-45); ABG PO2 58 mmHg (85-104); ABG TCO2 20 mEq/L (20-26)
[2021-09-20] MEDS ORDERED: Naloxone 0.4 MG/ML INJ IVP PRN (14:35)
[2021-09-20] MEDS ORDERED: Mag Hydrox/Al Hydrox/Simeth 30 ML UDC PO PRN (14:46)
[2021-09-20] MEDS ORDERED: Ondansetron ODT 4 MG TAB.RAPDIS SL PRN (14:46)
[2021-09-20] MEDS ORDERED: Potassium Phosphate 44 MEQ in 0.9 % Sodium Chloride 250 ML IVPB ONE (14:56)
[2021-09-20 15:26] LABS: Troponin I 0.05 ng/mL (< 0.04)
[2021-09-20 15:47] LABS: Influenza A PCR Negative (Negative); Influenza B PCR Negative (Negative); Resp. Syncytial Virus PCR Negative (Negative)
[2021-09-20 15:51] LABS: SARS-CoV-2 by PCR (In House) Positive (Negative)
[2021-09-20 16:24] LABS: D-Dimer 1095 ng/mLFEU (0-500)
[2021-09-20] MEDS ORDERED: Dextrose Gel 15 GM/37.5 ML TUBE PO PRN ×2 (17:10)
[2021-09-20] MEDS ORDERED: *HR* Dextrose 50 % in Water (Syg) 50 ML SYRINGE IVP PRN (17:10)
[2021-09-20] MEDS ORDERED: D5% in Water 1,000 ML IVC PRN (17:10)
[2021-09-20 17:37] LABS: Fibrinogen 375 mg/dL (169-393)
[2021-09-20] MEDS: *HR* Heparin 5,000 UNIT/ML VIAL SQ SCH (17:51)
[2021-09-20 18:02] LABS: Ferritin > 1500 ng/mL (20-250); Lactate Dehydrogenase 777 Units/L (140-271)
[2021-09-20] MEDS: Ipratropium 1 PUFF INHALER IH SCH ×2 (19:52→23:02)
[2021-09-20] MEDS: Piperacillin/Tazobactam 3.375 GM in 0.9 % Sodium Chloride Mini Bag 100 ML IVPB SCH (20:17)
[2021-09-20] MEDS: *HR* OxyCODONE Immed Rel 5 MG TABLET PO PRN (20:34)
[2021-09-20] MEDS: Insulin LISPRO 300 UNITS/3 ML VIAL SUBQ SCH (23:27)
[2021-09-21] MEDS ORDERED: Vancomycin 1,250 MG/262.5 ML IV.SOLN IVPB SCH (02:00)
[2021-09-21] MEDS: *HR* OxyCODONE Immed Rel 5 MG TABLET PO PRN ×3 (02:09→16:20)
[2021-09-21] MEDS: Ipratropium 1 PUFF INHALER IH SCH ×6 (03:48→23:00)
[2021-09-21] MEDS: Piperacillin/Tazobactam 3.375 GM in 0.9 % Sodium Chloride Mini Bag 100 ML IVPB SCH ×3 (03:58→20:29)
[2021-09-21 04:25] LABS: Basophils % 0.5 %
[2021-09-21 04:27] LABS: Hematocrit 25.7 % (37.5-50.1); Hemoglobin 8.3 g/dL (12.9-16.9); Immature Platelets 5.5 % (1.1-6.1); Lymphocytes # 0.1 K/mcL (0.6-4.6); Lymphocytes % 4.6 %; Mean Corpuscular HGB Conc 32.3 g/dL (31.6-35.5); Mean Corpuscular Hemoglobin 28.6 pg (28.0-33.3); Mean Corpuscular Volume 88.6 fL (83.0-100.0); Mean Platelet Volume 11.9 fL (9.4-12.4); Monocytes # 0.1 K/mcL (0.0-1.3); Monocytes % 6.7 %; Neutrophils # 1.4 K/mcL (1.6-8.9); Red Cell Distribution Width 16.1 % (11.5-14.5); Segmented Neutrophils % 69.2 %
[2021-09-21 04:36] LABS: Prothrombin Time 11.3 Seconds (9.4-12.1)
[2021-09-21 04:37] LABS: Platelet Count 90 K/mcL (140-400)
[2021-09-21 04:40] LABS: Alanine Aminotransferase 41 Units/L (7-52); Albumin 3.1 g/dL (3.5-5.7); Albumin/Globulin Ratio 1.1 (1.1-2.2); Alkaline Phosphatase 63 Units/L (34-104); Aspartate Amino Transferase 77 Units/L (13-39); BUN/Creatinine Ratio 14 (6-26); Bilirubin,Total 0.5 mg/dL (0.3-1.0); Blood Urea Nitrogen 19 mg/dL (8-23); Calcium 7.1 mg/dL (8.6-10.3); Carbon Dioxide 20 mEq/L (23-29); Chloride 105 mEq/L (98-107); Globulin 2.8 g/dL (2.4-3.5); Glucose 272 mg/dL (70-105); Magnesium 1.8 mg/dL (1.6-2.6); Osmolality,Calculated 294 (280-300); Phosphorous 3.6 mg/dL (2.7-4.5); Potassium 3.7 mEq/L (3.5-5.1); Sodium 136 mEq/L (136-145); Total Protein 5.9 g/dL (6.4-8.9); eGFR For African Americans > 60 (> 60); eGFR For Non-African Americans 53 (> 60)
[2021-09-21 04:49] LABS: Platelet Estimate Slight Decrease (Normal); Poikilocytosis 1+ (Not Present)
[2021-09-21] MEDS: *HR* Heparin 5,000 UNIT/ML VIAL SQ SCH ×2 (05:56→18:24)
[2021-09-21] MEDS: Insulin LISPRO 300 UNITS/3 ML VIAL SUBQ SCH ×4 (08:01→20:27)
[2021-09-21] MEDS: *HR* Amiodarone 200 MG TABLET PO SCH (09:05)
[2021-09-21] MEDS: allopurinoL 100 MG TABLET PO SCH (09:05)
[2021-09-21] MEDS: Aspirin Enteric Coated 81 MG Tablet PO SCH (09:05)
[2021-09-21] MEDS: Dexamethasone Sodium Phos/PF 10 MG/ML VIAL IVP SCH (09:05)
[2021-09-21] MEDS: Insulin DETEMIR 100 UNIT/ML X5UNITS SUBQ SCH ×2 (09:18→20:33)
[2021-09-21] MEDS ORDERED: *HR* LORazepam 2 MG/ML VIAL IVP ONE (22:08)
[2021-09-22] MEDS ORDERED: *HR* LORazepam 2 MG/ML VIAL IVP ONE (00:08)
[2021-09-22] MEDS: *HR* OxyCODONE Immed Rel 5 MG TABLET PO PRN ×3 (04:23→17:05)
[2021-09-22] MEDS: Ipratropium 1 PUFF INHALER IH SCH ×6 (04:29→23:56)
[2021-09-22 05:16] LABS: BUN/Creatinine Ratio 13 (6-26); Blood Urea Nitrogen 19 mg/dL (8-23); C-Reactive Protein 41 mg/L (Less than 10); Calcium 7.2 mg/dL (8.6-10.3); Carbon Dioxide 20 mEq/L (23-29); Chloride 106 mEq/L (98-107); Glucose 146 mg/dL (70-105); Lactate Dehydrogenase 599 Units/L (140-271); Magnesium 1.8 mg/dL (1.6-2.6); Osmolality,Calculated 295 (280-300); Phosphorous 2.7 mg/dL (2.7-4.5); Potassium 3.9 mEq/L (3.5-5.1); Sodium 140 mEq/L (136-145); eGFR For African Americans > 60 (> 60); eGFR For Non-African Americans 50 (> 60)
[2021-09-22 05:33] LABS: Ferritin > 1500 ng/mL (20-250)
[2021-09-22 05:39] LABS: Fibrinogen 401 mg/dL (169-393)
[2021-09-22 05:46] LABS: D-Dimer 1543 ng/mLFEU (0-500)
[2021-09-22] MEDS: *HR* Heparin 5,000 UNIT/ML VIAL SQ SCH ×2 (05:47→17:04)
[2021-09-22] MEDS: Dexmedetomidine HCl 400 MCG/100 ML MLS IVC SCH (05:47)
[2021-09-22] MEDS: Piperacillin/Tazobactam 3.375 GM in 0.9 % Sodium Chloride Mini Bag 100 ML IVPB SCH ×3 (05:48→21:19)
[2021-09-22] MEDS: Acetaminophen 325 MG TABLET PO PRN ×2 (06:49→21:19)
[2021-09-22] MEDS: *HR* Amiodarone 200 MG TABLET PO SCH (07:44)
[2021-09-22] MEDS: Aspirin Enteric Coated 81 MG Tablet PO SCH (07:44)
[2021-09-22] MEDS: allopurinoL 100 MG TABLET PO SCH (07:45)
[2021-09-22] MEDS: Dexamethasone Sodium Phos/PF 10 MG/ML VIAL IVP SCH (07:45)
[2021-09-22] MEDS: Insulin LISPRO 300 UNITS/3 ML VIAL SUBQ SCH ×4 (08:11→22:43)
[2021-09-22] MEDS ORDERED: Furosemide 20 MG/2 ML VIAL IVP ONE (10:54)
[2021-09-22] MEDS: Insulin DETEMIR 100 UNIT/ML X5UNITS SUBQ SCH ×2 (10:59→23:01)
[2021-09-22] MEDS: Melatonin 3 MG TABLET PO PRN (21:19)
[2021-09-22] MEDS ORDERED: Piperacillin/Tazobactam 3.375 GM VIAL ONE (22:52)
[2021-09-23] MEDS: Ipratropium 1 PUFF INHALER IH SCH ×6 (03:50→23:20)
[2021-09-23] MEDS: *HR* OxyCODONE Immed Rel 5 MG TABLET PO PRN ×3 (03:55→17:50)
[2021-09-23] MEDS ORDERED: Saline Nasal Spray 44 ML BOTTLE NS PRN (04:02)
[2021-09-23] MEDS: Dexmedetomidine HCl 400 MCG/100 ML MLS IVC SCH (05:08)
[2021-09-23] MEDS: Piperacillin/Tazobactam 3.375 GM in 0.9 % Sodium Chloride Mini Bag 100 ML IVPB SCH ×3 (05:09→20:41)
[2021-09-23] MEDS: *HR* Heparin 5,000 UNIT/ML VIAL SQ SCH ×2 (05:10→16:49)
[2021-09-23 05:17] LABS: Hemoglobin 8.2 g/dL (12.9-16.9); Red Cell Distribution Width 16.6 % (11.5-14.5)
[2021-09-23 05:19] LABS: Basophils % 0.6 %; Hematocrit 26.4 % (37.5-50.1); Immature Granulocytes % 10.1 % (0-4); Immature Platelets 6.9 % (1.1-6.1); Lymphocytes # 0.1 K/mcL (0.6-4.6); Lymphocytes % 1.6 %; Mean Corpuscular HGB Conc 31.1 g/dL (31.6-35.5); Mean Corpuscular Hemoglobin 27.9 pg (28.0-33.3); Mean Corpuscular Volume 89.8 fL (83.0-100.0); Monocytes # 0.6 K/mcL (0.0-1.3); Monocytes % 10.9 %; Neutrophils # 3.9 K/mcL (1.6-8.9); Nucleated Red Blood Cells 0.4 /100 WBC (0); Platelet Count 121 K/mcL (140-400); Red Blood Count 2.94 M/mcL (4.19-5.50); Segmented Neutrophils % 76.8 %; White Blood Count 5.1 K/mcL (4.3-11.1)
[2021-09-23 05:36] LABS: Albumin 3.3 g/dL (3.5-5.7); Albumin/Globulin Ratio 1.3 (1.1-2.2); Bilirubin,Total 0.4 mg/dL (0.3-1.0); Calcium 7.4 mg/dL (8.6-10.3); Globulin 2.6 g/dL (2.4-3.5); Potassium 3.9 mEq/L (3.5-5.1); Total Protein 5.9 g/dL (6.4-8.9)
[2021-09-23 06:17] LABS: Platelet Estimate Slight Decrease (Normal)
[2021-09-23] MEDS: Insulin LISPRO 300 UNITS/3 ML VIAL SUBQ SCH ×4 (09:01→21:01)
[2021-09-23] MEDS: Insulin DETEMIR 100 UNIT/ML X5UNITS SUBQ SCH ×2 (09:42→21:04)
[2021-09-23] MEDS: Furosemide 20 MG/2 ML VIAL IVP SCH (09:42)
[2021-09-23] MEDS: Dexamethasone Sodium Phos/PF 10 MG/ML VIAL IVP SCH (09:42)
[2021-09-23] MEDS: *HR* Amiodarone 200 MG TABLET PO SCH (09:42)
[2021-09-23] MEDS: allopurinoL 100 MG TABLET PO SCH (09:42)
[2021-09-23] MEDS: Aspirin Enteric Coated 81 MG Tablet PO SCH (09:42)
[2021-09-23] MEDS: Acetaminophen 325 MG TABLET PO PRN (11:59)
[2021-09-23] MEDS ORDERED: Sennosides/Docusate Sodium TABLET PO PRN (15:00)
[2021-09-23] MEDS: Melatonin 3 MG TABLET PO PRN (20:40)
[2021-09-24] MEDS: *HR* OxyCODONE Immed Rel 5 MG TABLET PO PRN ×4 (00:08→21:56)
[2021-09-24] MEDS: Dexmedetomidine HCl 400 MCG/100 ML MLS IVC SCH ×2 (02:58→23:57)
[2021-09-24] MEDS: Ipratropium 1 PUFF INHALER IH SCH ×6 (03:53→23:43)
[2021-09-24] MEDS: *HR* Heparin 5,000 UNIT/ML VIAL SQ SCH ×2 (05:58→17:49)
[2021-09-24] MEDS: Piperacillin/Tazobactam 3.375 GM in 0.9 % Sodium Chloride Mini Bag 100 ML IVPB SCH ×3 (05:58→21:48)
[2021-09-24 07:11] LABS: Hematocrit 24.2 % (37.5-50.1); Hemoglobin 7.5 g/dL (12.9-16.9); Lymphocytes # 0.1 K/mcL (0.6-4.6); Mean Corpuscular Hemoglobin 28.1 pg (28.0-33.3); Mean Corpuscular Volume 90.6 fL (83.0-100.0); Mean Platelet Volume 11.2 fL (9.4-12.4); Nucleated Red Blood Cells 0.6 /100 WBC (0); Platelet Count 114 K/mcL (140-400); Red Blood Count 2.67 M/mcL (4.19-5.50); Red Cell Distribution Width 16.7 % (11.5-14.5); White Blood Count 5.1 K/mcL (4.3-11.1)
[2021-09-24] MEDS: Furosemide 20 MG/2 ML VIAL IVP SCH (08:53)
[2021-09-24] MEDS: Aspirin Enteric Coated 81 MG Tablet PO SCH (08:53)
[2021-09-24] MEDS: *HR* Amiodarone 200 MG TABLET PO SCH (08:53)
[2021-09-24] MEDS: allopurinoL 100 MG TABLET PO SCH (08:53)
[2021-09-24] MEDS: Dexamethasone Sodium Phos/PF 10 MG/ML VIAL IVP SCH (08:54)
[2021-09-24] MEDS: Insulin LISPRO 300 UNITS/3 ML VIAL SUBQ SCH ×4 (09:02→21:19)
[2021-09-24] MEDS: Insulin DETEMIR 100 UNIT/ML X5UNITS SUBQ SCH ×2 (09:11→21:51)
[2021-09-24 09:38] LABS: Anisocytosis 1+ (Not Present); Monocytes # 0.4 K/mcL (0.0-1.3); Neutrophils # 4.4 K/mcL (1.6-8.9)
[2021-09-24 09:39] LABS: Platelet Estimate Decreased (Normal); Poikilocytosis 1+ (Not Present)
[2021-09-24 09:47] LABS: Polychromasia 1+ (Not Present)
[2021-09-24 11:34] LABS: Alanine Aminotransferase 32 Units/L (7-52); Albumin 3.1 g/dL (3.5-5.7); Albumin/Globulin Ratio 1.3 (1.1-2.2); Alkaline Phosphatase 68 Units/L (34-104); Aspartate Amino Transferase 43 Units/L (13-39); BUN/Creatinine Ratio 19 (6-26); Bilirubin,Total 0.4 mg/dL (0.3-1.0); Blood Urea Nitrogen 25 mg/dL (8-23); Calcium 7.7 mg/dL (8.6-10.3); Carbon Dioxide 25 mEq/L (23-29); Chloride 105 mEq/L (98-107); Ferritin > 1500 ng/mL (20-250); Globulin 2.3 g/dL (2.4-3.5); Glucose 131 mg/dL (70-105); Lactate Dehydrogenase 581 Units/L (140-271); Osmolality,Calculated 294 (280-300); Sodium 139 mEq/L (136-145); Total Protein 5.4 g/dL (6.4-8.9); eGFR For African Americans > 60 (> 60); eGFR For Non-African Americans 54 (> 60)
[2021-09-24 13:28] LABS: Fibrinogen 375 mg/dL (169-393)
[2021-09-24 13:29] LABS: D-Dimer 1662 ng/mLFEU (0-500)
[2021-09-24 15:02] LABS: C-Reactive Protein 24 mg/L (Less than 10)
[2021-09-25] MEDS: Melatonin 3 MG TABLET PO PRN ×2 (03:03→21:58)
[2021-09-25] MEDS: Ipratropium 1 PUFF INHALER IH SCH ×5 (04:08→20:31)
[2021-09-25] MEDS: *HR* Heparin 5,000 UNIT/ML VIAL SQ SCH ×2 (05:59→17:39)
[2021-09-25] MEDS: Aspirin Enteric Coated 81 MG Tablet PO SCH (09:09)
[2021-09-25] MEDS: *HR* Amiodarone 200 MG TABLET PO SCH (09:09)
[2021-09-25] MEDS: *HR* OxyCODONE Immed Rel 5 MG TABLET PO PRN ×3 (09:09→22:07)
[2021-09-25] MEDS: allopurinoL 100 MG TABLET PO SCH (09:09)
[2021-09-25] MEDS: Dexamethasone Sodium Phos/PF 10 MG/ML VIAL IVP SCH (09:10)
[2021-09-25] MEDS: Insulin LISPRO 300 UNITS/3 ML VIAL SUBQ SCH ×4 (09:10→19:57)
[2021-09-25] MEDS: Insulin DETEMIR 100 UNIT/ML X5UNITS SUBQ SCH (09:10)
[2021-09-25] MEDS: Furosemide 20 MG/2 ML VIAL IVP SCH ×2 (09:11→17:39)
[2021-09-25] MEDS: Dexmedetomidine HCl 400 MCG/100 ML MLS IVC SCH (10:12)
[2021-09-25 11:36] LABS: Hematocrit 29.2 % (37.5-50.1); Lymphocytes # 0.1 K/mcL (0.6-4.6); Mean Corpuscular HGB Conc 31.2 g/dL (31.6-35.5); Mean Corpuscular Hemoglobin 27.8 pg (28.0-33.3); Mean Corpuscular Volume 89.3 fL (83.0-100.0); Nucleated Red Blood Cells 0.6 /100 WBC (0); Platelet Count 145 K/mcL (140-400); Red Blood Count 3.27 M/mcL (4.19-5.50); Red Cell Distribution Width 16.9 % (11.5-14.5); White Blood Count 4.8 K/mcL (4.3-11.1)
[2021-09-25 12:02] LABS: Alanine Aminotransferase 37 Units/L (7-52); Albumin 3.4 g/dL (3.5-5.7); Albumin/Globulin Ratio 1.3 (1.1-2.2); Alkaline Phosphatase 83 Units/L (34-104); Aspartate Amino Transferase 44 Units/L (13-39); BUN/Creatinine Ratio 20 (6-26); Bilirubin,Total 0.5 mg/dL (0.3-1.0); Blood Urea Nitrogen 24 mg/dL (8-23); Calcium 8.7 mg/dL (8.6-10.3); Carbon Dioxide 29 mEq/L (23-29); Chloride 101 mEq/L (98-107); Globulin 2.6 g/dL (2.4-3.5); Glucose 87 mg/dL (70-105); Osmolality,Calculated 287 (280-300); Potassium 3.9 mEq/L (3.5-5.1); Sodium 137 mEq/L (136-145); eGFR For African Americans > 60 (> 60); eGFR For Non-African Americans > 60 (> 60)
[2021-09-25 12:24] LABS: Hemoglobin 9.1 g/dL (12.9-16.9)
[2021-09-25 14:04] LABS: Anisocytosis 1+ (Not Present); Monocytes # 0.7 K/mcL (0.0-1.3); Neutrophils # 3.8 K/mcL (1.6-8.9)
[2021-09-25 14:05] LABS: Platelet Estimate Slight Decrease (Normal); Poikilocytosis 1+ (Not Present)
[2021-09-25] MEDS: *HR* LORazepam 2 MG/ML VIAL IVP PRN (21:56)
[2021-09-26] MEDS: Ipratropium 1 PUFF INHALER IH SCH ×7 (00:14→20:00)
[2021-09-26] MEDS: *HR* LORazepam 2 MG/ML VIAL IVP PRN ×3 (03:54→21:46)
[2021-09-26] MEDS: *HR* OxyCODONE Immed Rel 5 MG TABLET PO PRN ×3 (03:54→21:44)
[2021-09-26 06:07] LABS: Alanine Aminotransferase 31 Units/L (7-52); Albumin 3.3 g/dL (3.5-5.7); Albumin/Globulin Ratio 1.2 (1.1-2.2); Alkaline Phosphatase 85 Units/L (34-104); Aspartate Amino Transferase 35 Units/L (13-39); BUN/Creatinine Ratio 25 (6-26); Bilirubin,Total 0.6 mg/dL (0.3-1.0); Blood Urea Nitrogen 33 mg/dL (8-23); Calcium 8.7 mg/dL (8.6-10.3); Carbon Dioxide 28 mEq/L (23-29); Chloride 98 mEq/L (98-107); Globulin 2.7 g/dL (2.4-3.5); Glucose 126 mg/dL (70-105); Osmolality,Calculated 287 (280-300); Potassium 4.4 mEq/L (3.5-5.1); Sodium 134 mEq/L (136-145); eGFR For African Americans > 60 (> 60); eGFR For Non-African Americans 54 (> 60)
[2021-09-26] MEDS: *HR* Heparin 5,000 UNIT/ML VIAL SQ SCH ×2 (06:28→17:01)
[2021-09-26] MEDS: Insulin LISPRO 300 UNITS/3 ML VIAL SUBQ SCH ×4 (08:31→19:42)
[2021-09-26] MEDS: Furosemide 20 MG/2 ML VIAL IVP SCH ×2 (08:32→16:58)
[2021-09-26] MEDS: Aspirin Enteric Coated 81 MG Tablet PO SCH (08:32)
[2021-09-26] MEDS: *HR* Amiodarone 200 MG TABLET PO SCH (08:32)
[2021-09-26] MEDS: allopurinoL 100 MG TABLET PO SCH (08:32)
[2021-09-26] MEDS: Dexamethasone Sodium Phos/PF 10 MG/ML VIAL IVP SCH (08:33)
[2021-09-26] MEDS: Insulin DETEMIR 100 UNIT/ML X5UNITS SUBQ SCH (08:50)
[2021-09-26] MEDS ORDERED: 0.9 % Sodium Chloride 500 ML IVC ONE (23:58)
[2021-09-27] MEDS: Ipratropium 1 PUFF INHALER IH SCH (00:10)
[2021-09-27] MEDS ORDERED: Ipratropium 1 PUFF INHALER IH PRN (00:47)
[2021-09-27] MEDS: *HR* LORazepam 2 MG/ML VIAL IVP PRN ×4 (02:58→21:50)
[2021-09-27] MEDS: *HR* Heparin 5,000 UNIT/ML VIAL SQ SCH ×2 (05:02→17:38)
[2021-09-27 05:43] LABS: Hematocrit 26.8 % (37.5-50.1); Hemoglobin 8.3 g/dL (12.9-16.9); Immature Platelets 10.5 % (1.1-6.1); Mean Corpuscular Hemoglobin 27.7 pg (28.0-33.3); Mean Corpuscular Volume 89.3 fL (83.0-100.0); Mean Platelet Volume 12.4 fL (9.4-12.4); Red Cell Distribution Width 17.4 % (11.5-14.5); White Blood Count 3.3 K/mcL (4.3-11.1)
[2021-09-27 06:02] LABS: BUN/Creatinine Ratio 29 (6-26); Blood Urea Nitrogen 38 mg/dL (8-23); Calcium 8.5 mg/dL (8.6-10.3); Carbon Dioxide 28 mEq/L (23-29); Chloride 100 mEq/L (98-107); Glucose 126 mg/dL (70-105); Magnesium 1.9 mg/dL (1.6-2.6); Osmolality,Calculated 295 (280-300); Potassium 4.1 mEq/L (3.5-5.1); Sodium 137 mEq/L (136-145); eGFR For African Americans > 60 (> 60); eGFR For Non-African Americans 54 (> 60)
[2021-09-27] MEDS: Insulin LISPRO 300 UNITS/3 ML VIAL SUBQ SCH ×4 (07:26→19:42)
[2021-09-27] MEDS ORDERED: Furosemide 20 MG/2 ML VIAL IVP SCH (09:00)
[2021-09-27] MEDS: Aspirin Enteric Coated 81 MG Tablet PO SCH (09:36)
[2021-09-27] MEDS: Dexamethasone Sodium Phos/PF 10 MG/ML VIAL IVP SCH (09:36)
[2021-09-27] MEDS: allopurinoL 100 MG TABLET PO SCH (09:36)
[2021-09-27] MEDS: *HR* Amiodarone 200 MG TABLET PO SCH (09:36)
[2021-09-27] MEDS: Insulin DETEMIR 100 UNIT/ML X5UNITS SUBQ SCH (09:48)
[2021-09-27] MEDS: *HR* OxyCODONE Immed Rel 5 MG TABLET PO PRN ×2 (12:18→18:22)
[2021-09-27] MEDS: Melatonin 3 MG TABLET PO PRN (19:41)
[2021-09-27] MEDS ORDERED: Haloperidol Lactate 5 MG/ML VIAL IVP ONE (21:13)
[2021-09-27] MEDS: QUEtiapine Fumarate 25 MG TABLET PO SCH (22:46)
[2021-09-28] MEDS: *HR* LORazepam 2 MG/ML VIAL IVP PRN ×4 (00:15→20:43)
[2021-09-28] MEDS ORDERED: *HR* LORazepam 2 MG/ML VIAL IVP ONE ×3 (03:00→23:22)
[2021-09-28] MEDS ORDERED: Haloperidol Lactate 5 MG/ML VIAL IVP ONE ×2 (03:00→03:15)
[2021-09-28] MEDS: *HR* Heparin 5,000 UNIT/ML VIAL SQ SCH ×2 (05:25→18:19)
[2021-09-28] MEDS: Insulin LISPRO 300 UNITS/3 ML VIAL SUBQ SCH ×4 (10:12→20:44)
[2021-09-28] MEDS: Aspirin Enteric Coated 81 MG Tablet PO SCH (10:15)
[2021-09-28] MEDS: allopurinoL 100 MG TABLET PO SCH (10:16)
[2021-09-28] MEDS: Insulin DETEMIR 100 UNIT/ML X5UNITS SUBQ SCH (10:16)
[2021-09-28] MEDS: *HR* Amiodarone 200 MG TABLET PO SCH (10:16)
[2021-09-28] MEDS: Dexamethasone Sodium Phos/PF 10 MG/ML VIAL IVP SCH (10:17)
[2021-09-28] MEDS: Haloperidol Lactate 5 MG/ML VIAL IVP PRN ×3 (11:28→20:43)
[2021-09-28] MEDS ORDERED: *HR* LORazepam 2 MG/ML VIAL ONE (13:48)
[2021-09-28] MEDS ORDERED: Lidocaine Jelly 6ml 1 APPL/6 ML JEL.PF.APP TP ONE (15:58)
[2021-09-28] MEDS: QUEtiapine Fumarate 25 MG TABLET PO SCH (20:45)
[2021-09-29] MEDS: *HR* LORazepam 2 MG/ML VIAL IVP PRN ×5 (03:37→22:03)
[2021-09-29] MEDS: Haloperidol Lactate 5 MG/ML VIAL IVP PRN ×3 (03:38→22:35)
[2021-09-29] MEDS: *HR* Heparin 5,000 UNIT/ML VIAL SQ SCH ×2 (05:51→19:27)
[2021-09-29] MEDS: Insulin LISPRO 300 UNITS/3 ML VIAL SUBQ SCH ×4 (08:42→20:26)
[2021-09-29] MEDS: Aspirin Enteric Coated 81 MG Tablet PO SCH (08:46)
[2021-09-29] MEDS: allopurinoL 100 MG TABLET PO SCH (08:46)
[2021-09-29] MEDS: *HR* Amiodarone 200 MG TABLET PO SCH (08:46)
[2021-09-29] MEDS ORDERED: Pantoprazole 40 MG VIAL IVP SCH (09:00)
[2021-09-29] MEDS ORDERED: *HR* LORazepam 2 MG/ML VIAL IVP ONE (14:06)
[2021-09-29] MEDS ORDERED: *HR* Alteplase (Cathflo) 2 MG VIAL IVP ONE (15:15)
[2021-09-29] MEDS ORDERED: *HR* Metoprolol 5 MG/5 ML VIAL IVP ONE (18:26)
[2021-09-29 18:45] VITALS: TEMP 98.2
[2021-09-29] MEDS: QUEtiapine Fumarate 25 MG TABLET PO SCH (20:29)
[2021-09-29 23:02] VITALS: BP 90/51; PULSE 100
[2021-09-30] MEDS ORDERED: Morphine Sulfate 2 MG/ML SYRINGE IVP STA (00:52)
[2021-09-30] MEDS ORDERED: *HR* LORazepam 2 MG/ML VIAL IVP STA (01:13)
[2021-09-30 02:07] VITALS: O2SAT 95
[2021-09-30] MEDS ORDERED: Dexmedetomidine HCl 400 MCG/100 ML MLS IVC SCH (02:45)
[2021-09-30] MEDS ORDERED: *HR* LORazepam 2 MG/ML VIAL IVP ONE (03:44)
[2021-09-30] MEDS ORDERED: Morphine Sulfate 2 MG/ML SYRINGE IVP PRN (04:53)
[2021-09-30] MEDS ORDERED: *HR* LORazepam 2 MG/ML VIAL IVP PRN ×2 (04:53→07:26)
[2021-09-30] MEDS ORDERED: Atropine 1% Opth Drops 100 DROP/5 ML BOTTLE SL PRN (04:55)
[2021-09-30] MEDS ORDERED: Haloperidol Lactate 5 MG/ML VIAL IVP PRN (04:56)
[2021-09-30] MEDS: *HR* Heparin 5,000 UNIT/ML VIAL SQ SCH (06:18)
[2021-09-30] MEDS ORDERED: *HR* FentaNYL (PF) 100 MCG/2 ML VIAL IVP PRN (07:25)
== END 2021-09-30 08:07 | disposition expired | DRG 177 ==
LOC: SUATTDRO → EMEROOARM 10:49 → SUATTDRO 16:12 → 2ANU 16:12 → 2NNU 09-22 01:22 → 2NENU 09-22 16:58
PROVIDERS: ADMIT Family Medicine; ATTEND Internal Medicine